=== PATIENT | female | born 1940 | race Caucasian/White ===

== ENCOUNTER 2016-07-07 15:21 | Inpatient (IN) | payer MEDICARE, OTHER ==
[~2016-07-07] VITALS: Ht 162.6 cm; Wt 103.4 kg
[~2016-07-07 15:21] MED LIST: ACET650T5 PO; CETI5TAB11 PO; HYDR-2164 PO; LOSA1TAB95 PO; MECL-38 PO; MELO-32 PO
--- OUTSIDE RECORDS SUMMARY | 2016-07-07 15:27 | XMS REPORT | Referral Summary ---
Author Author [facility] Organization [facility] Address Unknown Phone Unavailable Care Team Providers Care Fruit Grower Name Role Phone Calin Willard Primary Care Physician [phone] Encounter VC Date(s): 09/26/14 - 09/26/14 [facility] [address] [place] [address]- Discharge Diagnosis: Olecranon bursitis Discharge Disposition: 01-Home or Self Care Attending Physician: Lenny Willard MD Admitting Physician: Lenny Willard MD Vital Signs Most recent to 1 oldest [Reference Range]: Temperature Tympanic 36.0 degC [36.6-38.1 degC] *LOW* (09/26/14 2:46 PM) Peripheral Pulse 72 bpm Rate [60-100 bpm] (09/26/14 2:46 PM) Respiratory Rate 22 br/min [14-20 br/min] *HI* (09/26/14 2:46 PM) Blood Pressure 130/70 mmHg [90-140/60-90 mmHg] (09/26/14 2:46 PM) Problem List Condition Effective Dates Status Health Status Informant Allergies(Confirmed) Resolved Arthritis(Confirmed) Resolved Benign essential Active hypertension (disorder)(Confirmed ) Chicken Resolved pox(Confirmed) Generalized Active osteoarthritis (disorder)(Confirmed ) Ear Resolved infection(Confirmed) Gastroesophageal Active reflux disease (disorder)(Confirmed ) genitourinary(Confir Resolved med) GERD Resolved (gastroesophageal reflux disease)(Confirmed) Hypertension(Confirm Resolved ed) Kidney stone Active (disorder)(Confirmed ) Kidney Resolved stones(Confirmed) Obesity(Confirmed) Active patient Right sided Active sciatica(Confirmed) Sinus Resolved infection(Confirmed) Allergies, Adverse Reactions, Alerts Substance Reaction Severity Status Ceftin Active codeine gi upset Active HYDROcodone Active meperidine Active oxyCODONE HALLUCINATIONS Active sulfamethoxazole Active sulindac Active Medications fluticasone 50 mcg/inh nasal spray 1 sprays, Nasal, BID, 0 Refill(s) Start Date: 07/31/13 Status: Ordered losartan-hydrochlorothiazide 100 mg-12.5 mg oral tablet See Instructions, TAKE ONE TABLET BY MOUTH DAILY, # 30 tabs, 1 Refill(s), eRx: [facility] #[id number], TAKE ONE TABLET BY MOUTH DAILY Start Date: 02/13/15 Status: Ordered meclizine 12.5 mg oral tablet 12.5 mg 1 tabs, Oral, TID, as needed for dizziness, # 30 tabs, 0 Refill(s) Start Date: 10/24/14 Status: Ordered meloxicam 15 mg oral tablet See Instructions, TAKE ONE TABLET BY MOUTH EVERY DAY, # 60 tabs, eRx: [facility] #[id number], TAKE ONE TABLET BY MOUTH EVERY DAY Start Date: 02/01/15 Status: Ordered Tylenol Extra Strength mg, Oral, q6hr, 0 Refill(s) Start Date: 07/31/13 Status: Ordered Results No data available for this section Immunizations Vaccine Date Refusal Reason tetanus/diphth/pertuss (Tdap) adult/adol 09/20/12 pneumococcal 13-valent conjugate vaccine1 09/17/14 pneumococcal 23-polyvalent vaccine 07/24/08 zoster vaccine live 07/24/08 1Early/Late Reason: Nursing Judgment Procedures Procedure Date Related Diagnosis Body Site Mammogram 03/23/11 Colonoscope 10/17/06 DEXA - Dual energy X-ray photon 03/28/03 absorptiometry Cholecystectomy Cystoscopy Hysterectomy L TKA 11/10/2001 Lithotripsy R TKA 12/27/2001 Social History Social History Type Response Smoking Status Never smoker Assessment and Plan Extracted from: Title: Ambulatory Patient Education Author: Lenny Willard MD Date: Family Medicine Olecranon Bursitis Bursitis is swelling and soreness (inflammation) of a fluid-filled sac (bursa) that covers and protects a joint. Olecranon bursitis occurs over the elbow. CAUSES Bursitis can be caused by injury, overuse of the joint, arthritis, or infection. SYMPTOMS Tenderness, swelling, warmth, or redness over the elbow. Elbow pain with movement. This is greater with bending the elbow. Squeaking sound when the bursa is rubbed or moved. Increasing size of the bursa without pain or discomfort. Fever with increasing pain and swelling if the bursa becomes infected. HOME CARE INSTRUCTIONS Put ice on the affected area. Put ice in a plastic bag. Place a towel between your skin and the bag. Leave the ice on for 15-20 minutes each hour while awake. Do this for the first 2 days. When resting, elevate your elbow above the level of your heart. This helps reduce swelling. Continue to put the joint through a full range of motion 4 times per day. Rest the injured joint at other times. When the pain lessens, begin normal slow movements and usual activities. Only take [id number] or prescription medicines for pain, discomfort, or fever as directed by your caregiver. Reduce your intake of milk and related dairy products (cheese, yogurt). They may make your condition worse. SEEK IMMEDIATE MEDICAL CARE IF: Your pain increases even during treatment. You have a fever. You have heat and inflammation over the bursa and elbow. You have a red line that goes up your arm. You have pain with movement of your elbow. MAKE SURE YOU: Understand these instructions. Will watch your condition. Will get help right away if you are not doing well or get worse. Document Released: 03/03/2007 Document Revised: 04/25/2012 Document Reviewed: [facility] Patient Information 2015 [employer]. This information is not intended to replace advice given to you by your health care provider. Make sure you discuss any questions you have with your health care provider. No follow up information was provided. Extracted from: Title: Office Visit Note Author: Lenny Willard MD Date: 09/26/14 Assessment/Plan Olecranon bursitis She is already taking meloxicam and she should continue that. She is to protect her elbow either by wearing an elbow pad or is being careful where she places it down. No heavy lifting. If she has ongoing problems or further concerns she'll let me know. I told him he'll be 3-4 weeks before this resolves. It appears to be worsening she'll let us know. Ordered: Office Visit Level 3 Est 31241
--- OUTSIDE RECORDS SUMMARY | 2016-07-07 15:27 | XMS REPORT | Referral Summary ---
Author Author [facility] Organization [facility] Address Unknown Phone Unavailable Care Team Providers Care Rebeamer Name Role Phone Calin Willard Primary Care Physician [phone] Encounter Date(s): 09/20/15 - 09/20/15 [facility] [address] [place] [address] [place] Discharge Diagnosis: Right knee pain Discharge Disposition: 01-Home or Self Care Attending Physician: Lenny Willard MD Admitting Physician: Lenny Willard MD Vital Signs Most recent to 1 oldest [Reference Range]: Temperature Tympanic 36.4 degC [36.6-38.1 degC] *LOW* (09/20/15 4:00 PM) Peripheral Pulse 67 bpm Rate [60-100 bpm] (09/20/15 4:00 PM) Blood Pressure 138/74 mmHg [90-140/60-90 mmHg] (09/20/15 4:00 PM) SpO2 96 % (09/20/15 4:00 PM) Problem List Condition Effective Dates Status [...] TABLET BY MOUTH DAILY, # 30 tabs, 4 Refill(s), eRx: [facility] #[id number], TAKE ONE TABLET BY MOUTH DAILY Start Date: 04/22/15 Status: Ordered meclizine 12.5 mg oral tablet 12.5 mg 1 tabs, Oral, TID, as needed for dizziness, # 30 tabs, 0 Refill(s) Start Date: 10/24/14 Status: Ordered meloxicam 15 mg oral tablet See Instructions, TAKE ONE TABLET BY MOUTH EVERY DAY, # 60 tabs, 2 Refill(s), eRx: [facility] #[id number], TAKE ONE TABLET BY MOUTH EVERY DAY Start Date: 06/25/15 Status: Ordered Tylenol Extra Strength mg, Oral, [...] smoker Assessment and Plan Extracted from: Title: Office Visit Note Author: Lenny Willard MD Date: 09/20/15 Assessment/Plan 1.Right knee pain I think this is a contusion to the knee. I recommended decreased activity and continue Tylenol as needed. If symptoms persist or worsenorthopedic follow-up encouraged. Ordered: Office Visit Level 3 Est 95939 XR Knee Complete Right
--- OUTSIDE RECORDS SUMMARY | 2016-07-07 15:27 | XMS REPORT | Referral Summary ---
Author Author [facility] Organization [facility] Address Unknown Phone Unavailable Care Team Providers Care Vp Of Customer Experience Strategy Name Role Phone Calin Willard Primary Care Physician [phone] Encounter VC Date(s): 11/27/14 - 11/27/14 [facility] [address] [place] [address] [place] [address] [place] Discharge Diagnosis: Benign essential hypertension Discharge Disposition: 01-Home or Self Care Attending Physician: Dion Burroughs JR, MD Admitting Physician: Dion Burroughs JR, MD Referring Physician: Lenny Willard MD Vital Signs Most recent to 1 oldest [Reference Range]: Peripheral Pulse 68 bpm Rate [60-100 bpm] (11/27/14 10:09 AM) Blood Pressure 142/88 mmHg [90-140/60-90 mmHg] *HI* (11/27/14 10:09 AM) Problem List Condition Effective Dates Status Health [...] See Instructions, TAKE ONE TABLET BY MOUTH ONCE A DAY, # 30 tabs, 5 Refill(s), eRx: [facility] #[id number], TAKE ONE TABLET BY MOUTH ONCE A DAY Start Date: 07/04/14 Status: Ordered meclizine 12.5 mg oral tablet 12.5 mg 1 tabs, Oral, TID, as needed for dizziness, # 30 tabs, 0 Refill(s) Start Date: 10/24/14 Status: Ordered meloxicam 15 mg oral tablet See Instructions, TAKE ONE TABLET BY MOUTH EVERY DAY, # 60 tabs, eRx: [facility] #[id number], TAKE ONE TABLET BY MOUTH EVERY DAY Start Date: 11/30/14 Status: Ordered oxybutynin 15 mg/24 hr oral tablet, extended release 15 mg 1 tabs, Oral, Daily, # 42 tabs, 0 Refill(s), Pharmacy: [facility] # [id number], 1 tabs Oral Daily,x6 weeks Start Date: 11/27/14 Stop Date: 01/08/15 Status: Ordered Tylenol Extra Strength mg, Oral, [...] Extracted from: Title: Ambulatory Patient Education Author: Dion Burroughs JR, MD Date : 11/27/14 Follow Up With: Where: When: Lenny Willard [address] [place] [address] Drive; [place] [address] Business (1) Within 3 to 5 days Comments: Follow Up With: Where: When: Dion Burroughs [address] [place] [address] Drive; [place] [address] [employer] (1) In 6 weeks 01/08/2015 Comments: Extracted from: Title: Office Visit Note Author: Dion Burroughs JR, MD Date: 11/27/14 Assessment/Plan 1.Benign essential hypertension continue losartan with hydrochlorothiazide History of kidney stones KUB x-ray ordered today, I reviewed the KUB x-ray could not see any stone present on the left and right kidney. urgency and urgency incontinence. Instructed to reduce intake of caffeine highly acidic and highly spiced food, patient was started on Oxybutynin 15 mg once a day. I would like to see her again in 6 weeks. Ordered: Office Visit Level 4 Est [id number] Orders: oxybutynin, 15 mg 1 tabs, Oral, Daily, # 42 tabs, 0 Refill(s), Pharmacy: [facility] #[id number], 1 tabs Oral Daily,x6 weeks
--- OUTSIDE RECORDS SUMMARY | 2016-07-07 15:27 | XMS REPORT | Referral Summary ---
Author Author [facility] Organization [facility] Address Unknown Phone Unavailable Care Team Providers Care Club Manager Name Role Phone Calin Willard Primary Care Physician [phone] Encounter VC Date(s): 11/27/14 - 11/27/14 [facility] [address] [place] [address] [place] [address] [place] Discharge Diagnosis: Benign [...] DAY, # 30 tabs, 5 Refill(s), eRx: [facility] #[id number], TAKE ONE TABLET BY MOUTH ONCE A DAY Start Date: 07/04/14 Status: Ordered meclizine 12.5 mg oral tablet 12.5 mg 1 tabs, Oral, TID, as needed for dizziness, # 30 tabs, 0 Refill(s) Start Date: 10/24/14 Status: Ordered meloxicam 15 mg oral tablet See Instructions, TAKE ONE TABLET BY MOUTH EVERY DAY, # 60 tabs, eRx: [facility] #[id number], TAKE ONE TABLET BY MOUTH EVERY DAY Start Date: 11/30/14 Status: Ordered oxybutynin 15 mg/24 hr oral tablet, extended release 15 mg 1 tabs, Oral, Daily, # 42 tabs, 0 Refill(s), Pharmacy: [facility] # [id number], 1 tabs Oral Daily,x6 weeks Start Date: [...] Follow Up With: Where: When: Lenny Willard [address] [place] [address] Drive; [place] [address] Business (1) Within 3 to 5 days Comments: Follow Up With: Where: When: Dion Burroughs [address] [place] [address] Drive; [place] [address] [employer] (1) In 6 weeks 01/08/2015 Comments: Extracted [...] weeks. Ordered: Office Visit Level 4 Est [id number] Orders: oxybutynin, 15 mg 1 tabs, Oral, Daily, # 42 tabs, 0 Refill(s), Pharmacy: [facility] #[id number], 1 tabs Oral Daily,x6 weeks
--- OUTSIDE RECORDS SUMMARY | 2016-07-07 15:27 | XMS REPORT | Referral Summary ---
Author Organization Unknown Address Unknown Phone Unavailable Care Team Providers Care Vegetable Buncher Name Role Phone Calin Willard Primary Care Physician [phone] Encounter VC Date(s): 05/29/14 - 05/29/14 [facility] [address] [place] [address] Dr [address] [place] [id number] Discharge Diagnosis: Kidney stones Discharge Disposition: Home or Self Care Attending Physician: Dion Burroughs JR, MD Admitting Physician: Dion Burroughs JR, MD Referring Physician: Dion Burroughs JR, MD Vital Signs Most recent to 1 oldest [Reference Range]: Peripheral Pulse 69 bpm Rate [60-100 bpm] (05/29/14 10:18 AM) Blood Pressure 118/82 mmHg [90-140/60-90 mmHg] (05/29/14 10:18 AM) Most recent to 1 oldest [Reference Range]: SpO2 94 % (05/29/14 10:18 AM) Problem List Condition Effective Dates Status [...] Ordered losartan-hydrochlorothiazide 100 mg-12.5 mg oral tablet 1 tabs, Oral, Daily, 0 Refill(s) Start Date: 07/31/13 Status: Ordered meloxicam 15 mg oral tablet See Instructions, TAKE ONE TABLET BY MOUTH EVERY DAY, # 60 tabs, eRx: [facility] #[id number], TAKE ONE TABLET BY MOUTH EVERY DAY Special Instructions: TAKE ONE TABLET BY MOUTH EVERY DAY Start Date: 05/22/14 Status: Ordered Tylenol Extra Strength mg, Oral, q6hr, 0 Refill(s) Start Date: 07/31/13 Status: Ordered Results No data available for this section Immunizations Vaccine Date Refusal Reason tetanus/diphth/pertuss (Tdap) adult/adol 09/20/12 pneumococcal 23-polyvalent vaccine 07/24/08 zoster vaccine live 07/24/08 Procedures Procedure Date Related Diagnosis Body Site Mammogram 03/23/11 Colonoscope 10/17/06 DEXA - Dual energy X-ray photon 03/28/03 absorptiometry Cholecystectomy Cystoscopy Hysterectomy L TKA 11/10/2001 Lithotripsy R TKA 12/27/2001 Social History Social History Type Response Smoking Status Never smoker Assessment and Plan Extracted from: Title: Ambulatory Patient Education Author: Dion Burroughs JR, MD Date : 05/29/14 Follow Up With: Where: When: Lenny Willard [address] [place] [address] Drive; [place] [address] Business (1) Within 3 to 5 days Comments: Follow Up With: Where: When: Dion Burroughs [address] [place] [address] Drive; [place] [address] Business (1) In 6 months 11/28/2014 Comments:
--- OUTSIDE RECORDS SUMMARY | 2016-07-07 15:27 | XMS REPORT | Continuity of Care Document ---
Author Author [facility] Organization [facility] Address Unknown Phone Unavailable Allergies Medications Problems Procedures Results Encounters ACCT No. Visit Date/Time Discharge Status Pt. Type Provider Facility Loc./Unit Complaint [id number] 04/06/2013 09:52:00 04/06/2013 23 :59:59 [facility] Outpatient [id number] 01/23/2013 16:02:00 01/23/2013 23 :59:59 CLS Outpatient
--- OUTSIDE RECORDS SUMMARY | 2016-07-07 15:27 | XMS REPORT | Referral Summary ---
Author Author [facility] Organization [facility] Address Unknown Phone Unavailable Care Team Providers Care Business Continuity Global Director Name Role Phone Calin Willard Primary Care Physician [phone] Encounter VC Date(s): 11/15/14 - 11/15/14 [facility] [address] [place] [id number] Discharge Diagnosis: Olecranon bursitis of left elbow Discharge Diagnosis: Tinnitus Discharge Disposition: 01-Home or Self Care Attending Physician: Lenny Willard MD Admitting Physician: Lenny Willard MD Vital Signs Most recent to 1 oldest [Reference Range]: Temperature Tympanic 35.7 degC [36.6-38.1 degC] *LOW* (11/15/14 2:40 PM) Peripheral Pulse 80 bpm Rate [60-100 bpm] (11/15/14 2:40 PM) Respiratory Rate 20 br/min [14-20 br/min] (11/15/14 2:40 PM) Blood Pressure 138/82 mmHg [90-140/60-90 mmHg] (11/15/14 2:40 PM) Problem List Condition Effective Dates Status [...] DAILY, # 30 tabs, 4 Refill(s), eRx: [facility] #[id number], TAKE ONE TABLET BY MOUTH DAILY Start Date: 04/22/15 Status: Ordered meclizine 12.5 mg oral tablet 12.5 mg 1 tabs, Oral, TID, as needed for dizziness, # 30 tabs, 0 Refill(s) Start Date: 10/24/14 Status: Ordered meloxicam 15 mg oral tablet See Instructions, TAKE ONE TABLET BY MOUTH EVERY DAY, # 60 tabs, eRx: [facility] #[id number], TAKE ONE TABLET BY MOUTH EVERY DAY Start Date: 04/08/15 Status: Ordered Tylenol Extra Strength mg, Oral, [...] Visit Note Author: Lenny Willard MD Date: 11/15/14 Assessment/Plan Olecranon bursitis of left elbow Reassurance at this point no further specific treatment. I encouraged her to try to stay off of her elbow and to use it as little as possible. Over time this should improve. I offered orthopedic referral she'll hold off for now. Ordered: Office Visit Level 3 Est 03996 Tinnitus Her exam is normal. I suggested with recent ear infection that we give this a few more weeks. If the symptoms persist then further evaluation possible ENT consult will be recommended. Ordered: Office Visit Level 3 Est 03097
--- OUTSIDE RECORDS SUMMARY | 2016-07-07 15:27 | XMS REPORT | Referral Summary ---
Author Author [facility] Organization [facility] Address Unknown Phone Unavailable Care Team Providers Care Sole Rougher Name Role Phone Calin Willard Primary Care Physician [phone] Encounter VC Date(s): 10/24/14 - 10/24/14 [facility] [address] [place] [address]- Discharge Diagnosis: Vertigo Discharge Diagnosis: Otitis media Discharge Disposition: 01-Home or Self Care Attending Physician: Marychuy Carroll APRN Admitting Physician: Marychuy Carroll APRN Vital Signs Most recent to 1 oldest [Reference Range]: Temperature Tympanic 35.8 degC [36.6-38.1 degC] *LOW* (10/24/14 2:17 PM) Peripheral Pulse 64 bpm Rate [60-100 bpm] (10/24/14 2:17 PM) Blood Pressure 118/76 mmHg [90-140/60-90 mmHg] (10/24/14 2:17 PM) Problem List Condition Effective Dates Status [...] DAILY, # 30 tabs, 4 Refill(s), eRx: [facility] #[id number], TAKE ONE TABLET BY MOUTH DAILY Start Date: 04/22/15 Status: Ordered meclizine 12.5 mg oral tablet 12.5 mg 1 tabs, Oral, TID, as needed for dizziness, # 30 tabs, 0 Refill(s) Start Date: 10/24/14 Status: Ordered meloxicam 15 mg oral tablet See Instructions, TAKE ONE TABLET BY MOUTH EVERY DAY, # 60 tabs, eRx: [facility] #[id number], TAKE ONE TABLET BY MOUTH EVERY DAY [...] and Plan Extracted from: Title: Office Visit Note-dizziness Author: Marychuy Carroll APRN Date: Assessment/Plan 1.Otitis media Amoxicillin twice a day x 10 days. Auragan ear drops as needed. office visit if not improving. Ordered: Office Visit Level 3 Est 47177 2.Vertigo Increase fluid intake. Small meals. Meclizine 12.5 mg 3 times a day as needed. May want to take routinely for the next few days.Let us know if symptoms fail to improve. Flu shot this fall. Ordered: Office Visit Level 3 Est [id number] Orders: amoxicillin, 875 mg 1 tabs, Oral, BID, X 10 days, # 20 tabs, 0 Refill( s), Pharmacy: [facility] #[id number], 1 tabs Oral BID,x10 days antipyrine-benzocaine otic, 2 drops, Ear-Left, q4hr, as needed for pain, X 7 days, # 10 mL, 0 Refill(s), Pharmacy: [facility] #[id number]
--- OUTSIDE RECORDS SUMMARY | 2016-07-07 15:27 | XMS REPORT | Referral Summary ---
Author Author [facility] Organization [facility] Address Unknown Phone Unavailable Care Team Providers Care Truck Shop Mechanic Name Role Phone Calin Willard Primary Care Physician [phone] Encounter VC Date(s): 01/06/16 - 01/06/16 [facility] [address] [place], [place] [address] Discharge Disposition: 01-Home or Self Care Attending Physician: Nato De La Cruz MD Admitting Physician: Nato De La Cruz MD Vital Signs No data available for this section Problem List Condition Effective Dates Status Health [...] Alerts Substance Reaction Severity Status Ceftin Active Clinoril Active codeine gi upset Active HYDROcodone Active meperidine Active oxyCODONE HALLUCINATIONS Active sulfamethoxazole Active sulindac Active Medications fluticasone 50 mcg/inh nasal spray 1 sprays, Nasal, BID, 0 Refill(s) Start Date: 07/31/13 Status: Ordered losartan-hydrochlorothiazide 100 mg-12.5 mg oral tablet See Instructions, TAKE ONE TABLET BY MOUTH DAILY, # 30 tabs, 4 Refill(s), eRx: [facility] #[id number], TAKE ONE TABLET BY MOUTH DAILY Start Date: 04/22/15 Status: Ordered meclizine 12.5 mg oral tablet 12.5 mg 1 tabs, Oral, TID, as needed for dizziness, # 30 tabs, 0 Refill(s) Start Date: 10/24/14 Status: Ordered meloxicam 15 mg oral tablet See Instructions, TAKE ONE TABLET BY MOUTH EVERY DAY, # 60 tabs, 6 Refill(s), Pharmacy: [facility] #[id number], TAKE ONE TABLET BY MOUTH EVERY DAY Start Date: 12/05/15 Status: Ordered tolterodine 4 mg oral capsule, extended release 4 mg 1 caps, Oral, Daily, # 90 caps, 0 Refill(s), Pharmacy: [facility] # [id number], 1 caps Oral Daily,x90 days Start Date: 12/30/15 Stop Date: 03/29/16 Status: Ordered Tylenol Extra Strength mg, Oral, q6hr, 0 Refill(s) Start Date: 07/31/13 Status: Ordered Results No data available for this section Immunizations Vaccine Date Refusal Reason tetanus/diphth/pertuss (Tdap) adult/adol 09/20/12 pneumococcal 13-valent conjugate vaccine1 09/17/14 pneumococcal 23-polyvalent vaccine 07/24/08 zoster vaccine live 07/24/08 1Early/Late Reason: Nursing Judgment Procedures Procedure Date Related Diagnosis Body Site Arthrocentesis, aspiration and/or injection, 01/06/16 major joint or bursa (eg, shoulder, hip, knee, subacromial bursa); without ultrasound guidance Mammogram 03/23/11 Colonoscope 10/17/06 DEXA - Dual energy X-ray photon 03/28/03 absorptiometry Cholecystectomy Cystoscopy Hysterectomy L TKA 11/10/2001 Lithotripsy R TKA 12/27/2001 Social History Social History Type Response Smoking Status Never smoker Assessment and Plan Extracted from: Title: Ambulatory Patient Education Author: Nato De La Cruz MD Date: 01/06/16 Procedures Joint Injection, Care After Refer to this sheet in the next few days. These instructions provide you with information on caring for yourself after you have had a joint injection. Your caregiver also may give you more specific instructions. Your treatment has been planned according to current medical practices, but problems sometimes occur. Call your caregiver if you have any problems or questions after your procedure. After any type of joint injection, it is not uncommon to experience: Soreness, swelling, or bruising around the injection site. Mild numbness, tingling, or weakness around the injection site caused by the numbing medicine used before or with the injection. It also is possible to experience the following effects associated with the specific agent after injection: Iodine-based contrast agents: Allergic reaction (itching, hives, widespread redness, and swelling beyond the injection site). Corticosteroids (These effects are rare.): Allergic reaction. Increased blood sugar levels (If you have diabetes and you notice that your blood sugar levels have increased, notify your caregiver). Increased blood pressure levels. Mood swings. Hyaluronic acid in the use of viscosupplementation. Temporary heat or redness. Temporary rash and itching. Increased fluid accumulation in the injected joint. These effects all should resolve within a day after your procedure. HOME CARE INSTRUCTIONS Limit yourself to light activity the day of your procedure. Avoid lifting heavy objects, bending, stooping, or twisting. Take prescription or [id number]-urqacme pain medication as directed by your caregiver. You may apply ice to your injection site to reduce pain and swelling the day of your procedure. Ice may be applied 03-04 times: Put ice in a plastic bag. Place a towel between your skin and the bag. Leave the ice on for no longer than 15-20 minutes each time. SEEK IMMEDIATE MEDICAL CARE IF: Pain and swelling get worse rather than better or extend beyond the injection site. Numbness does not go away. Blood or fluid continues to leak from the injection site. You have chest pain. You have swelling of your face or tongue. You have trouble breathing or you become dizzy. You develop a fever, chills, or severe tenderness at the injection site that last longer than 1 day. MAKE SURE YOU: Understand these instructions. Watch your condition. Get help right away if you are not doing well or if you get worse. This information is not intended to replace advice given to you by your health care provider. Make sure you discuss any questions you have with your health care provider. Document Released: 10/15/2011 Document Revised: 02/22/2015 Document Reviewed: [employer] Patient Education 2016 [employer] No follow up information was provided.
--- OUTSIDE RECORDS SUMMARY | 2016-07-07 15:27 | XMS REPORT | Referral Summary ---
Author Author [facility] Organization [facility] Address Unknown Phone Unavailable Care Team Providers Care Seed Technician Name Role Phone Calin Willard Primary Care Physician [phone] Encounter VC Date(s): 03/09/16 - 03/09/16 [facility] [address] [place] [address]- Discharge Diagnosis: Generalized osteoarthritis (disorder) Discharge Diagnosis: Obesity Discharge Diagnosis: Benign essential hypertension Discharge Diagnosis: Gastroesophageal reflux disease Discharge Disposition: 01-Home or Self Care Attending Physician: Lenny Willard MD Admitting Physician: Lenny Willard MD Vital Signs Most recent to 1 oldest [Reference Range]: Temperature Tympanic 36.2 degC [36.6-38.1 degC] *LOW* (03/09/16 10:57 AM) Peripheral Pulse 76 bpm Rate [60-100 bpm] (03/09/16 10:57 AM) Respiratory Rate 18 br/min [14-20 br/min] (03/09/16 10:57 AM) Blood Pressure 164/96 mmHg [90-140/60-90 mmHg] *HI* (03/09/16 10:57 AM) Problem List Condition Effective Dates Status [...] TABLET BY MOUTH DAILY, # 30 tabs, 3 Refill(s), eRx: [facility] #[id number] Start Date: 03/03/16 Status: Ordered meclizine 12.5 mg oral tablet 12.5 mg 1 tabs, Oral, TID, as needed for dizziness, # 30 tabs, 0 Refill(s) Start Date: 10/24/14 Status: Ordered meloxicam 15 mg oral tablet See Instructions, TAKE ONE TABLET BY MOUTH EVERY DAY, # 60 tabs, 6 Refill(s), Pharmacy: [facility] #[id number], TAKE ONE TABLET BY MOUTH EVERY DAY Start Date: 12/05/15 Status: Ordered tolterodine 4 mg oral capsule, extended release 4 mg 1 caps, Oral, Daily, # 90 caps, 3 Refill(s), Pharmacy: [facility] # [id number], 1 caps Oral Daily,x90 days Start Date: 03/09/16 Stop Date: 03/04/17 Status: Ordered Tylenol Extra Strength mg, Oral, q6hr, 0 Refill(s) Start Date: 07/31/13 Status: Ordered Results No data available for this section Immunizations Given and Recorded Vaccine Date Status Refusal Reason tetanus/diphth/pertuss (Tdap) adult/adol 09/20/12 Recorded pneumococcal 13-valent conjugate vaccine1 09/17/14 Given pneumococcal 23-polyvalent vaccine 07/24/08 Recorded zoster vaccine live 07/24/08 Given 1Early/Late Reason: Nursing Judgment Procedures Procedure Date Related Diagnosis Body Site Mammogram 03/23/11 Colonoscope 10/17/06 DEXA - Dual energy X-ray photon 03/28/03 absorptiometry Cholecystectomy Cystoscopy Hysterectomy L TKA 11/10/2001 Lithotripsy R TKA 12/27/2001 Social History Social History Type Response Smoking Status Never smoker Assessment and Plan Extracted from: Title: Office Visit Note Author: Lenny Willard MD Date: 03/09/16 Assessment/Plan 1.Benign essential hypertension Blood pressures a little high here but his been running normal at home. She'll continue to check at least twice weekly and keep me posted if they start running higher there. I've recommended a three-month follow-upwith fasting lab prior to that appointment. 2.Gastroesophageal reflux disease Chronic relatively stable no change in current treatment. 3.Generalized osteoarthritis (disorder) Chronic relatively stable. As mentioned above she is considering surgery on her left shoulder. For the time being she is elected to hold off on any further treatment. 4.Obesity I did encourage weight loss.
--- OUTSIDE RECORDS SUMMARY | 2016-07-07 15:27 | XMS REPORT | Continuity of Care Document ---
Author Author Lenny Willard MD [facility] Ambulatory Address [address] [place] [address] Phone Care Team Providers Care Brain Surgeon Name Role Phone Lenny Willard PP Unavailable Payers Payer name Insurance type Covered libertarian ID Authorization(s) Unknown Problems Condition Effective Dates (start - stop) Clinical Status Hypertension, Benign - *Chronic Osteoarthrosis, generalized, involving unspecified site - * Chronic GERD - *Chronic Degeneration of lumbar or lumbosacral intervertebral disc - * Chronic Hypertension, Benign - Chronic Osteoarthrosis, generalized, involving unspecified site - Chronic GERD - Chronic Degeneration of lumbar or lumbosacral intervertebral disc - Chronic Elevated blood pressure reading without diagnosis of hypertension - *Acute HEMATURIA NOS - *Acute NEED FOR PROPHYLACTIC VACCINATION WITH COMBINED [id number] ( DTP) (DTAP) VACCINE - Hypertension, Benign - *Chronic GERD - *Chronic Osteoarthrosis, generalized, involving unspecified site - * Chronic Calculus of kidney - *Chronic Hypertension, Benign - Chronic GERD - Chronic Osteoarthrosis, generalized, involving unspecified site - Chronic Calculus of kidney - Chronic Back pain - *Chronic Actinic keratosis - *Chronic Upper Respiratory Infection, Acute - *Acute Calculus of kidney - *Acute Obesity - *Chronic Hypertension, Benign - *Chronic GERD - *Chronic Osteoarthrosis, generalized, involving unspecified site - * Chronic Calculus of kidney - *Chronic Urinary Tract Infection - *Acute Abdominal pain, unspecified site - *Acute Hypertension, Benign - *Controlled Calculus of kidney - *Acute Calculus of ureter - *Acute Calculus of ureter - *Acute Calculus of ureter - *Acute Hypertension, Benign - *Chronic GERD - *Chronic Osteoarthrosis, generalized, involving unspecified site - * Chronic Degenerative disc disease, lumbar - *Chronic Calculus of kidney - *Acute Other postsurgical status - *Acute Family History Family Member Diagnosis Age At Onset Status Unknown Social History Social History Element Description Quantity Unknown Allergies, Adverse Reactions, Alerts Substance Reaction Severity Status ACETAMINOPHEN HALLUCINATIONS Unknown OXYCODONE HCL HALLUCINATIONS Unknown TRAMADOL UPSET STOMACH/HALLUCINATIONS Unknown CEFUROXIME AXETIL Unknown PRESERVATIVE FREE Unknown SULINDAC Unknown SULFA (SULFONAMIDE ANTIBIOTICS) Unknown HYDROCODONE BITARTRATE Unknown CODEINE SULFATE gi upset Unknown MEPERIDINE HCL Unknown ACETAMINOPHEN Unknown Medications Medication Instructions Dosage Effective Dates (start - stop) Status AMOXICILLIN (unknown strength) take 1 capsule by oral route every 8 hours for 10 days - No Longer Active Tylenol Extra Strength Rapid Release 500 mg tablet take 2 tablet (1000MG) by oral route every 6 hours as needed 1000 MG - Active fluticasone 50 mcg/actuation nasal spray,suspension one spray each nostril bid - Active losartan 50 mg-hydrochlorothiazide 12.5 mg tablet take 1/2 tablet (25/6.25) by oral route every day - Active meloxicam 15 mg tablet Take 1 tablet by mouth every day. - Active Immunizations Vaccine Date Status Comments Tdap (Boostrix r) completed pneumo (2 yrs or older) (PPV23) completed - Completed reason: previously given Zoster completed - Completed reason: previously given Results Test Name Date and Time Measure Units Reference Range Abnormal Flag Comments Unknown Vital Signs Date / Time: Height Weight Pulse Rate Blood Pressure Temperature /09:58:00 65.00 in 188.00 lbs 80 /min 130/70 mm[Hg] 99.3 F Procedures Procedure Date Unknown Encounters Encounter Location Date Patient Visit [facility] Patient Visit Patient Visit [facility] Patient Visit [facility] Patient Visit [facility] Patient Visit [facility] Patient Visit [facility] Patient Visit [facility] Patient Visit [facility] Patient Visit [facility] Patient [facility] Visit [facility] Patient Visit [facility] Patient Visit [facility] Patient Visit Con[facility] Advance Directives Directive Effective Date Unknown
--- OUTSIDE RECORDS SUMMARY | 2016-07-07 15:27 | XMS REPORT | Referral Summary ---
Author Author [facility] Organization [facility] Address Unknown Phone Unavailable Care Team Providers Care Warehouse Order Selector Name Role Phone Calin Willard Primary Care Physician [phone] Encounter VC Date(s): 11/15/14 - 11/15/14 [facility] [address] [place] [address] Discharge Diagnosis: Olecranon bursitis of left [...] DAY, # 30 tabs, 5 Refill(s), eRx: [facility] #[id number], TAKE ONE TABLET BY MOUTH ONCE A DAY Start Date: 07/04/14 Status: Ordered meclizine 12.5 mg oral tablet 12.5 mg 1 tabs, Oral, TID, as needed for dizziness, # 30 tabs, 0 Refill(s) Start Date: 10/24/14 Status: Ordered meloxicam 15 mg oral tablet See Instructions, TAKE ONE TABLET BY MOUTH EVERY DAY, # 60 tabs, eRx: [facility] #[id number], TAKE ONE TABLET BY MOUTH EVERY DAY Start Date: 09/06/14 Status: Ordered Tylenol Extra Strength mg, Oral, [...] now. Ordered: Office Visit Level 3 Est 88003 Tinnitus Her exam is normal. I suggested with recent ear infection that we give this a few more weeks. If the symptoms persist then further evaluation possible ENT consult will be recommended. Ordered: Office Visit Level 3 Est 88622
--- OUTSIDE RECORDS SUMMARY | 2016-07-07 15:27 | XMS REPORT | Referral Summary ---
Author Author [facility] Organization [facility] Address Unknown Phone Unavailable Care Team Providers Care Box Sealing Machine Operator Name Role Phone Calin Willard Primary Care Physician [phone] Encounter VC Date(s): 03/18/15 - 03/18/15 [facility] [address] [place] [address] [place] Discharge Diagnosis: Elevated glucose Discharge Diagnosis: Generalized osteoarthritis (disorder) Discharge Diagnosis: Benign essential hypertension Discharge Diagnosis: Gastroesophageal reflux disease Discharge Disposition: 01-Home or Self Care Attending Physician: Lenny Willard MD Admitting Physician: Lenny Willard MD Vital Signs Most recent to 1 oldest [Reference Range]: Temperature Tympanic 36.3 degC [36.6-38.1 degC] *LOW* (03/18/15 9:50 AM) Peripheral Pulse 84 bpm Rate [60-100 bpm] (03/18/15 9:50 AM) Respiratory Rate 18 br/min [14-20 br/min] (03/18/15 9:50 AM) Blood Pressure 116/68 mmHg [90-140/60-90 mmHg] (03/18/15 9:50 AM) Problem List Condition Effective Dates Status [...] DAILY, # 30 tabs, 1 Refill(s), eRx: [facility] #[id number], TAKE ONE TABLET BY MOUTH DAILY Start Date: 02/13/15 Status: Ordered meclizine 12.5 mg oral tablet 12.5 mg 1 tabs, Oral, TID, as needed for dizziness, # 30 tabs, 0 Refill(s) Start Date: 10/24/14 Status: Ordered meloxicam 15 mg oral tablet See Instructions, TAKE ONE TABLET BY MOUTH EVERY DAY, # 60 tabs, eRx: [facility] #[id number], TAKE ONE TABLET BY MOUTH EVERY DAY [...] Visit Note Author: Lenny Willard MD Date: 03/18/15 Assessment/Plan Benign essential hypertension Blood pressures well-controlled no change in current treatment is recommended. Fasting laboratory studies are ordered for later this week. Follow-up in 6 months. Ordered: Comprehensive Metabolic Panel Lipid Panel Office Visit Level 4 Est 25586 Elevated glucose She has had a mildly elevated glucose in the past we'll check an A1c with the lab. Encourageddietary control. Ordered: Hemoglobin A1c Office Visit Level 4 Est 95672 Gastroesophageal reflux disease Chronic stable no change in current treatment is recommended. Ordered: Office Visit Level 4 Est 38384 Generalized osteoarthritis (disorder) Chronic stable no change in current treatment is recommended. Ordered: Office Visit Level 4 Est 61633
--- OUTSIDE RECORDS SUMMARY | 2016-07-07 15:28 | XMS REPORT | Referral Summary ---
Author Author [facility] Organization [facility] Address Unknown Phone Unavailable Care Team Providers Care Roof Service Technician Name Role Phone Calin Willard Primary Care Physician [phone] Encounter VC Date(s): 12/05/15 - 12/05/15 [facility] [address] [place] [address] [place] Discharge Diagnosis: Benign essential hypertension Discharge Diagnosis: Biceps tendonitis on left Discharge Diagnosis: Gastroesophageal reflux disease Discharge Diagnosis: Generalized osteoarthritis (disorder) Discharge Disposition: 01-Home or Self Care Attending Physician: Lenny Willard MD Admitting Physician: Lenny Willard MD Vital Signs Most recent to 1 oldest [Reference Range]: Temperature Tympanic 36.3 degC [36.6-38.1 degC] *LOW* (12/05/15 9:37 AM) Peripheral Pulse 76 bpm Rate [60-100 bpm] (12/05/15 9:37 AM) Respiratory Rate 16 br/min [14-20 br/min] (12/05/15 9:37 AM) Blood Pressure 142/90 mmHg [90-140/60-90 mmHg] *HI* (12/05/15 9:37 AM) SpO2 98 % (12/05/15 9:37 AM) Problem List Condition Effective Dates Status [...] DAILY, # 30 tabs, 4 Refill(s), eRx: [facility] #[id number], TAKE ONE TABLET BY MOUTH DAILY Start Date: 04/22/15 Status: Ordered meclizine 12.5 mg oral tablet 12.5 mg 1 tabs, Oral, TID, as needed for dizziness, # 30 tabs, 0 Refill(s) Start Date: 10/24/14 Status: Ordered meloxicam 15 mg oral tablet See Instructions, TAKE ONE TABLET BY MOUTH EVERY DAY, # 60 tabs, 6 Refill(s), Pharmacy: [facility] #[id number], TAKE ONE TABLET BY MOUTH EVERY DAY Start Date: 12/05/15 Status: Ordered Tylenol Extra Strength mg, Oral, q6hr, 0 Refill(s) Start Date: 07/31/13 Status: Ordered Results Chemistry Most recent to 1 oldest [Reference Range]: Sodium Lvl [135-144 143 mEq/L mEq/L] (12/05/15 10:15 AM) Potassium Lvl 4.0 mEq/L [3.5-5.2 mEq/L] (12/05/15 10:15 AM) Chloride [99-111 108 mEq/L mEq/L] (12/05/15 10:15 AM) CO2 [22-31 mEq/L] 30 mEq/L (12/05/15 10:15 AM) AGAP [3-20] 5 (12/05/15 10:15 AM) BUN [10-20 mg/dL] 18 mg/dL (12/05/15 10:15 AM) Glucose Lvl [70-99 97 mg/dL mg/dL] (12/05/15 10:15 AM) Creatinine Lvl 1.10 mg/dL [0.57-1.11 mg/dL] (12/05/15 10:15 AM) eGFR [>60 mL/min] 48 mL/min 1 *ABN* (12/05/15 10:15 AM) Calcium Lvl 9.6 mg/dL [8.9-10.5 mg/dL] (12/05/15 10:15 AM) Albumin Lvl [3.4-4.8 4.0 gm/dL gm/dL] (12/05/15 10:15 AM) Total Protein 6.7 gm/dL [6.0-7.6 gm/dL] (12/05/15 10:15 AM) Globulin [1.8-4.0 2.7 gm/dL gm/dL] (12/05/15 10:15 AM) ALT [0-55 U/L] 12 U/L (12/05/15 10:15 AM) AST [5-34 U/L] 15 U/L (12/05/15 10:15 AM) Alk Phos [40-150 112 U/L U/L] (12/05/15 10:15 AM) Bili Total [0.2-1.2 0.5 mg/dL mg/dL] (12/05/15 10:15 AM) 1Result Comment: Multiply eGFR results by 1.21 for race. Immunizations Vaccine Date Refusal Reason tetanus/diphth/pertuss (Tdap) [...] Visit Note Author: Lenny Willard MD Date: 12/05/15 Assessment/Plan 1.Benign essential hypertension Blood pressure appears to be adequately controlled. Medications and treatments reviewed no changes are recommended. I've recommended a CMP today. Follow-up in 3 months call with questions problems or concerns. Ordered: Comprehensive Metabolic Panel Office Visit Level 4 Est 41273 2.Gastroesophageal reflux disease Chronic stable no change in current treatment. Ordered: Office Visit Level 4 Est 06686 3.Generalized osteoarthritis (disorder) Chronic stable no change in current treatment. I did refillmeloxicam for her today. Ordered: Comprehensive Metabolic Panel Office Visit Level 4 Est 55437 4.Biceps tendonitis on left Reassurance at this point. Avoid heavy use or lifting. I think this will calm down over time. Doesn't feel like she is more in the tendon at this point. If she is having further problems or not improving she'll let us know. Ordered: Office Visit Level 4 Est 28576
--- OUTSIDE RECORDS SUMMARY | 2016-07-07 15:28 | XMS REPORT | Referral Summary ---
Author Author [facility] Organization [facility] Address Unknown Phone Unavailable Care Team Providers Care Public Works Supervisor Name Role Phone Calin Willard Primary Care Physician [phone] Encounter Date(s): 09/17/14 - 09/17/14 [facility] [place] [address] [place] [address] [place] Discharge Diagnosis: Degenerative joint disease involving multiple joints Discharge Diagnosis: Benign essential hypertension Discharge Diagnosis: Degenerative disc disease Discharge Diagnosis: Gastroesophageal reflux disease Discharge Disposition: 01-Home or Self Care Attending Physician: Lenny Willard MD Admitting Physician: Lenny Willard MD Referring Physician: Lenny Willard MD Vital Signs Most recent to 1 oldest [Reference Range]: Temperature Tympanic 36.9 degC [36.6-38.1 degC] (09/17/14 9:38 AM) Peripheral Pulse 72 bpm Rate [60-100 bpm] (09/17/14 9:38 AM) Respiratory Rate 16 br/min [14-20 br/min] (09/17/14 9:38 AM) Blood Pressure 132/72 mmHg [90-140/60-90 mmHg] (09/17/14 9:38 AM) Problem List Condition Effective Dates Status [...] DAILY, # 30 tabs, 1 Refill(s), eRx: [facility] #[id number], TAKE ONE TABLET BY MOUTH DAILY Start Date: 02/13/15 Status: Ordered meclizine 12.5 mg oral tablet 12.5 mg 1 tabs, Oral, TID, as needed for dizziness, # 30 tabs, 0 Refill(s) Start Date: 10/24/14 Status: Ordered meloxicam 15 mg oral tablet See Instructions, TAKE ONE TABLET BY MOUTH EVERY DAY, # 60 tabs, eRx: [facility] #[id number], TAKE ONE TABLET BY MOUTH EVERY DAY [...] Visit Note Author: Lenny Willard MD Date: 09/17/14 Assessment/Plan Benign essential hypertension The pressure appears to be adequately controlled. No change in current treatment is recommended. Follow-up in 6 months. Ordered: pneumococcal 13-valent conjugate vaccine, 0.5 mL, IntraMuscular, Once, First Dose: 09/17/14 11:00:00 CDT, Stop Date: 09/17/14 11:00:00 CDT, Form: Injection Office Visit Level 4 Est 73328 Degenerative disc disease Chronic stable no change in current treatment recommended. Ordered: Office Visit Level 4 Est 22266 Degenerative joint disease involving multiple joints Overall her arthritis is relatively stable she can continue to be active. Continue treatment without change. Ordered: Office Visit Level 4 Est 86519 Gastroesophageal reflux disease Chronic stable no change in current treatment. Ordered: Office Visit Level 4 Est 81382
--- OUTSIDE RECORDS SUMMARY | 2016-07-07 15:28 | XMS REPORT | Referral Summary ---
Author Author [facility] Organization [facility] Address Unknown Phone Unavailable Care Team Providers Care Scrap Handler Name Role Phone Calin Willard Primary Care Physician [phone] Encounter VC Date(s): 03/09/16 - 03/09/16 [facility] [address] [place] [address] [place] Perla [address]- Discharge Diagnosis: Overactive bladder Discharge Disposition: 01-Home or Self Care Attending Physician: Moe Hernández MD Vital Signs Most recent to 1 oldest [Reference Range]: Blood Pressure 138/98 mmHg [90-140/60-90 mmHg] (03/09/16 2:00 PM) Problem List Condition Effective Dates Status [...] DAILY, # 30 tabs, 3 Refill(s), eRx: [facility] #[id number] Start Date: 03/03/16 Status: Ordered meclizine 12.5 mg oral tablet 12.5 mg 1 tabs, Oral, TID, as needed for dizziness, # 30 tabs, 0 Refill(s) Start Date: 10/24/14 Status: Ordered meloxicam 15 mg oral tablet See Instructions, TAKE ONE TABLET BY MOUTH EVERY DAY, # 60 tabs, 6 Refill(s), Pharmacy: [facility] #[id number], TAKE ONE TABLET BY MOUTH EVERY DAY Start Date: 12/05/15 Status: Ordered tolterodine 4 mg oral capsule, extended release 4 mg 1 caps, Oral, Daily, # 90 caps, 3 Refill(s), Pharmacy: [facility] # [id number], 1 caps Oral Daily,x90 days Start Date: [...] Extracted from: Title: Office Visit Note Author: Moe Hernández MD Date: 03/09/16 Assessment/Plan Overactive bladder Continue Detrol Follow-up in 6 months or sooner if necessary.
--- OUTSIDE RECORDS SUMMARY | 2016-07-07 15:28 | XMS REPORT | Referral Summary ---
Author Author [facility] Organization [facility] Address Unknown Phone Unavailable Care Team Providers Care Personnel Records Clerk Name Role Phone Calin Willard Primary Care Physician [phone] Encounter VC Date(s): 01/21/15 - 01/21/15 [facility] [address] [place] [address] [place] [address]- [place] Discharge Diagnosis: Essential hypertension Discharge Diagnosis: Urinary incontinence in female Discharge Diagnosis: Urinary incontinence in female Discharge Diagnosis: GERD without esophagitis Discharge Disposition: 01-Home or Self Care Attending Physician: Dion Burroughs JR, MD Admitting Physician: Dion Burroughs JR, MD Referring Physician: Lenny Willard MD Vital Signs Most recent to 1 oldest [Reference Range]: Peripheral Pulse 99 bpm Rate [60-100 bpm] (01/21/15 3:13 PM) Blood Pressure 118/76 mmHg [90-140/60-90 mmHg] (01/21/15 3:13 PM) Problem List Condition Effective Dates Status [...] DAY, # 30 tabs, 5 Refill(s), eRx: [facility] #[id number], TAKE ONE TABLET BY MOUTH ONCE A DAY Start Date: 07/04/14 Status: Ordered meclizine 12.5 mg oral tablet 12.5 mg 1 tabs, Oral, TID, as needed for dizziness, # 30 tabs, 0 Refill(s) Start Date: 10/24/14 Status: Ordered meloxicam 15 mg oral tablet See Instructions, TAKE ONE TABLET BY MOUTH EVERY DAY, # 60 tabs, eRx: [facility] #[id number], TAKE ONE TABLET BY MOUTH EVERY DAY Start Date: 11/30/14 Status: Ordered oxybutynin 15 mg/24 hr oral tablet, extended release 15 mg 1 tabs, Oral, Daily, # 42 tabs, 0 Refill(s), Pharmacy: [facility] # [id number], 1 tabs Oral Daily,x6 weeks Start Date: [...] Note Author: Dion Burroughs JR, MD Date: 01/21/15 Assessment/Plan 1.Urinary incontinence in female, Urinary incontinence in female continue doing Kegel's pelvic floor exercises. Will discontinue the Oxybutynin because it makes her urinary incontinence, worst. Recheck in my office in 66 weeks or sooner if needed Ordered: Office Visit Level 3 Est 04698 2.Essential hypertension continue losartan with hydrochlorothiazide. 3.GERD without esophagitis continue medication [id number]. History of kidney stones patient instructed to drink 8-10 glasses of liquids a day, reduce intake of caffeine, red meat, nuts and too much salted food.
--- OUTSIDE RECORDS SUMMARY | 2016-07-07 15:28 | XMS REPORT | Continuity of Care Document ---
Author Author Carlito Valerio MA Ambulatory Address [address] [place] [id number] Phone Unavailable Care Team Providers Care Certified Technician Name Role Phone Sudheer Lenny R[place] Unavailable Payers Payer name Insurance type Covered democrat ID Authorization(s) Unknown Problems Condition Effective Dates (start - stop) Clinical Status Actinic keratosis - *Chronic Upper Respiratory Infection, Acute - *Acute Elevated blood pressure reading without diagnosis of hypertension - *Acute HEMATURIA NOS - *Acute NEED FOR PROPHYLACTIC VACCINATION WITH COMBINED [id number] ( DTP) (DTAP) VACCINE - Hypertension, Benign - *Chronic GERD - *Chronic Osteoarthrosis, generalized, involving unspecified site - * Chronic Calculus of kidney - *Chronic Hypertension, Benign - Chronic GERD - Chronic Osteoarthrosis, generalized, involving unspecified site - Chronic Calculus of kidney - Chronic Back pain - *Chronic Calculus of kidney - *Acute Obesity - [...] SULINDAC Unknown SULFA (SULFONAMIDE ANTIBIOTICS) Unknown HYDROCODONE BIT Unknown CODEINE SULFATE gi upset Unknown MEPERIDINE HCL Unknown ACETAMINOPHEN Unknown Medications Medication Instructions Dosage Effective Dates (start - stop) Status Tylenol Extra Strength Rapid Release 500 mg [...] Date Status Comments Tdap (Boostrix r) completed Zoster completed - Completed reason: previously given pneumo (2 yrs or older) (PPV23) completed - Completed reason: previously given Results Test Name Date and Time Measure Units Reference Range Abnormal Flag Comments Unknown Vital Signs Date / Time: Height Weight Pulse Rate Blood Pressure Temperature /16:07:00 65.00 in 246.00 lbs 72 /min 148/90 mm[Hg] 98.4 F Procedures Procedure Date Unknown Encounters Encounter Location Date Patient Visit [facility] Patient Visit Patient Visit [facility] Patient Visit [facility] Patient Visit [facility] Patient Visit [facility] Patient Visit [facility] Patient Visit [facility] Patient Visit [facility] New Urology Patient Visit [facility] Patient Visit [facility] Urology Patient Visit [facility] New Patient Visit [facility] New Urology Patient Visit [facility] New Urology Patient Visit [facility] Advance Directives Directive Effective Date Unknown
--- OUTSIDE RECORDS SUMMARY | 2016-07-07 15:28 | XMS REPORT | Referral Summary ---
Author Author [facility] Organization [facility] Address Unknown Phone Unavailable Care Team Providers Care Health Lead Name Role Phone Calin Willard Primary Care Physician [phone] Encounter VC Date(s): 12/30/15 - 12/30/15 [facility] [address] [place] [address] [place] [phone]- Discharge Diagnosis: Overactive bladder Discharge Disposition: 01-Home or Self Care Attending Physician: Moe Hernández MD Admitting Physician: Moe Hernández MD Vital Signs Most recent to 1 oldest [Reference Range]: Peripheral Pulse 84 bpm Rate [60-100 bpm] (12/30/15 8:57 AM) Blood Pressure 138/84 mmHg [90-140/60-90 mmHg] (12/30/15 8:57 AM) Problem List Condition Effective Dates Status [...] DAILY, # 30 tabs, 4 Refill(s), eRx: [facility] #[id number], TAKE ONE TABLET BY MOUTH DAILY Start Date: 04/22/15 Status: Ordered meclizine 12.5 mg oral tablet 12.5 mg 1 tabs, Oral, TID, as needed for dizziness, # 30 tabs, 0 Refill(s) Start Date: 10/24/14 Status: Ordered meloxicam 15 mg oral tablet See Instructions, TAKE ONE TABLET BY MOUTH EVERY DAY, # 60 tabs, 6 Refill(s), Pharmacy: [facility] #[id number], TAKE ONE TABLET BY MOUTH EVERY DAY Start Date: 12/05/15 Status: Ordered tolterodine 4 mg oral capsule, extended release 4 mg 1 caps, Oral, Daily, # 90 caps, 0 Refill(s), Pharmacy: [facility] # [id number], 1 caps Oral Daily,x90 days Start Date: [...] Visit Note Author: Moe Hernández MD Date: 12/30/15 Assessment/Plan Overactive bladder Patient still continues to have symptoms. Will start her on Detrol. Discussed the side effects. We'll see her back in 6 weeks with a renal bladder ultrasoundto evaluate her postvoid residual and also for any evidence of kidney stones. In addition I recommended herto continue doing Keagle's exercises. - We discussed behavorial management of stone disease including increased fluid intake, increased citrate, decreased sodium, decreased animal proteins, decreased oxalate. Ordered: US Retroperitoneal Complete
--- OUTSIDE RECORDS SUMMARY | 2016-07-07 15:29 | XMS REPORT | Referral Summary ---
Author Author [facility] Organization [facility] Address Unknown Phone Unavailable Care Team Providers Care Receiving Associate Store Name Role Phone Cailn Willard Primary Care Physician [phone] Encounter Date(s): 02/12/16 - 02/12/16 [facility] [address] [place], [place] [address] Discharge Diagnosis: Left shoulder pain Discharge Disposition: 01-Home or Self Care [...] DAILY, # 30 tabs, 4 Refill(s), eRx: [facility] #[id number], TAKE ONE TABLET BY MOUTH DAILY Start Date: 3/7/16 Status: Ordered meclizine 12.5 mg oral tablet 12.5 mg 1 tabs, Oral, TID, as needed for dizziness, # 30 tabs, 0 Refill(s) Start Date: 10/24/14 Status: Ordered meloxicam 15 mg oral tablet See Instructions, TAKE ONE TABLET BY MOUTH EVERY DAY, # 60 tabs, 6 Refill(s), Pharmacy: [facility] #[id number], TAKE ONE TABLET BY MOUTH EVERY DAY Start Date: 12/05/15 Status: Ordered tolterodine 4 mg oral capsule, extended release 4 mg 1 caps, Oral, Daily, # 90 caps, 0 Refill(s), Pharmacy: [facility] # [id number], 1 caps Oral Daily,x90 days Start Date: [...] Extracted from: Title: Office Visit Note Author: Nato De La Cruz MD Date: 02/12/16 Assessment/Plan Left shoulder pain Ordered: MRI UE Joint w/o Contrast Left Office Visit Level 3 Est 30251
--- OUTSIDE RECORDS SUMMARY | 2016-07-07 15:29 | XMS REPORT | Referral Summary ---
Author Author [facility] Organization [facility] Address Unknown Phone Unavailable Care Team Providers Care Wheelchair Van Driver Name Role Phone Calin Willard Primary Care Physician [phone] Encounter VC Date(s): 11/27/14 - 11/27/14 [facility] [address] [place] [address] [place] [address]- [place] Discharge Diagnosis: Benign [...] DAILY, # 30 tabs, 4 Refill(s), eRx: [facility] #[id number], TAKE ONE TABLET BY MOUTH DAILY Start Date: 04/22/15 Status: Ordered meclizine 12.5 mg oral tablet 12.5 mg 1 tabs, Oral, TID, as needed for dizziness, # 30 tabs, 0 Refill(s) Start Date: 10/24/14 Status: Ordered meloxicam 15 mg oral tablet See Instructions, TAKE ONE TABLET BY MOUTH EVERY DAY, # 60 tabs, eRx: [facility] #[id number], TAKE ONE TABLET BY MOUTH EVERY DAY [...] Follow Up With: Where: When: Lenny Willard [address] [place] [address] Drive; [place] [address] Business (1) Within 3 to 5 days Comments: Follow Up With: Where: When: Dion Burroughs [address] [place] [address] Drive; [place] [address] [employer] (1) In 6 weeks 01/08/2015 Comments: Extracted [...] weeks. Ordered: Office Visit Level 4 Est 91200 Orders: oxybutynin, 15 mg 1 tabs, Oral, Daily, # 42 tabs, 0 Refill(s), Pharmacy: [facility] #[id number], 1 tabs Oral Daily,x6 weeks
--- OUTSIDE RECORDS SUMMARY | 2016-07-07 15:29 | XMS REPORT | Referral Summary ---
Author Author [facility] Organization [facility] Address Unknown Phone Unavailable Care Team Providers Care Belt Cleaner Name Role Phone Calin Willard Primary Care Physician [phone] Encounter Date(s): 03/06/16 - 03/06/16 [facility] [address] [place], [place] [address] Discharge Diagnosis: Nontraumatic incomplete tear of left rotator cuff Discharge Diagnosis: Biceps tendinitis on left Discharge Disposition: 01-Home or Self Care Attending [...] DAILY, # 30 tabs, 3 Refill(s), eRx: [facility] #[id number] Start Date: 03/03/16 Status: Ordered meclizine 12.5 mg oral tablet 12.5 mg 1 tabs, Oral, TID, as needed for dizziness, # 30 tabs, 0 Refill(s) Start Date: 10/24/14 Status: Ordered meloxicam 15 mg oral tablet See Instructions, TAKE ONE TABLET BY MOUTH EVERY DAY, # 60 tabs, 6 Refill(s), Pharmacy: [facility] #[id number], TAKE ONE TABLET BY MOUTH EVERY DAY Start Date: 12/05/15 Status: Ordered tolterodine 4 mg oral capsule, extended release 4 mg 1 caps, Oral, Daily, # 90 caps, 0 Refill(s), Pharmacy: [facility] # [id number], 1 caps Oral Daily,x90 days Start Date: [...] Diagnosis Body Site Arthrocentesis, aspiration and/or injection, 03/06/16 major joint or bursa (eg, shoulder, hip, knee, subacromial bursa); without ultrasound guidance Mammogram 03/23/11 Colonoscope 10/17/06 DEXA - Dual energy X-ray photon 03/28/03 absorptiometry Cholecystectomy Cystoscopy Hysterectomy L TKA 11/10/2001 Lithotripsy R TKA 12/27/2001 Social History Social History Type Response Smoking Status Never smoker Assessment and Plan No data available for this section
--- OUTSIDE RECORDS SUMMARY | 2016-07-07 15:29 | XMS REPORT | Referral Summary ---
Author Author [facility] Organization [facility] Address Unknown Phone Unavailable Care Team Providers Care Press Puller Name Role Phone Calin Willard Primary Care Physician [phone] Encounter VC Date(s): 11/27/14 - 11/27/14 [facility] [address] [place] [address] [place] [address]- [place] Discharge Diagnosis: Benign [...] DAY, # 30 tabs, 5 Refill(s), eRx: [facility] #[id number], TAKE ONE TABLET BY MOUTH ONCE A DAY Start Date: 07/04/14 Status: Ordered meclizine 12.5 mg oral tablet 12.5 mg 1 tabs, Oral, TID, as needed for dizziness, # 30 tabs, 0 Refill(s) Start Date: 10/24/14 Status: Ordered meloxicam 15 mg oral tablet See Instructions, TAKE ONE TABLET BY MOUTH EVERY DAY, # 60 tabs, eRx: [facility] #[id number], TAKE ONE TABLET BY MOUTH EVERY DAY Start Date: 09/06/14 Status: Ordered oxybutynin 15 mg/24 hr oral tablet, extended release 15 mg 1 tabs, Oral, Daily, # 42 tabs, 0 Refill(s), Pharmacy: [facility] # [id number], 1 tabs Oral Daily,x6 weeks Start Date: [...] Follow Up With: Where: When: Lenny Willard [address] [place] [address] Drive; [place] [address] Business (1) Within 3 to 5 days Comments: Follow Up With: Where: When: Dion Burroughs [address] [place] [address] Drive; [place] [address] [employer] (1) In 6 weeks 01/08/2015 Comments: Extracted [...] weeks. Ordered: Office Visit Level 4 Est 59122 Orders: oxybutynin, 15 mg 1 tabs, Oral, Daily, # 42 tabs, 0 Refill(s), Pharmacy: [facility] #[id number], 1 tabs Oral Daily,x6 weeks
--- NOTE | 2016-07-07 15:33 | NUR ---
ADMIT PATIENT ADMITTED TO ROOM 135 AT THIS TIME VIA WHEELCHAIR AND VOLUNTEER STAFF MEMBER. PATIENT A/OX3. DAUGHTER AT BEDSIDE. PT DENIES N/V, CHEST PAIN, AND SOA. BED IN THE LOWEST POSITION, CALL LIGHT WITHIN REACH, SIDE RAILS UPX2, AND BED ALARM ON. WILL CONTINUE TO MONITOR.
[2016-07-07 15:41] VITALS: Ht 162.6 cm; Wt 103.4 kg
[2016-07-07] MEDS ORDERED: POTASSIUM CHLORIDE 20 MEQ in NORMAL SALINE 1,000 ML IV SCH (15:43)
[2016-07-07] MEDS ORDERED: MECLIZINE 25 MG TABLET PO PRN (15:45)
[2016-07-07] MEDS ORDERED: PRN ORDERS MC (15:45)
[2016-07-07] MEDS ORDERED: CETIRIZINE 10 MG TABLET PO PRN (15:45)
[2016-07-07 15:46] VITALS: BP 162/85; PULSE 88; RESP 18; TEMP 97.5; O2SAT 94
--- NOTE | 2016-07-07 15:57 | HPPDOC ---
KATHERYN WOLFF 07/07/16 1541: HPI - Adult Date DATE: 07/07/16 TIME: 15:35 General Chief Complaint: sepsis, UTI History of Present Illness Jordin Sanchez is a very pleasant 75-year-old female who was a direct admit from the clinic due to sepsis and UTI. She reports that last evening, , around 11:30 pm, she began feeling nauseous and started vomiting with dry heaves. She reports that she was up vomiting almost every hour throughout the night. Prior to that, she states that she was feeling fine. She reports that she tried to eat some ice chips and take sips of water throughout the night, but would vomit after each attempt. She also reports episodes of incontinence with standing and when vomiting which is apparently new for her. She denies any known fevers but admits to having chills at home. She denies any chest pain , shortness of breath, abdominal pain, diarrhea, dysuria or hematuria. Her daughter is present on exam and recalls that her mother was recently treated with azithromycin for bronchitis from 06/25/16-06/30/16. Mrs. Sanchez reports that her cough had resolved following treatment with the azithromycin but returned last evening, just prior to vomiting. She denies any recent bad food or exposure to sick contacts with similar symptoms. In light of her symptoms and not feeling well, she presented to her PCP's office this morning for further evaluation. She was seen by Marychuy Carroll APRN in the clinic and underwent a thorough work up including labs and imaging. Vital signs on presentation to the clinic revealed she was febrile at 38.5 C and tachycardic with heart rate 92. CBC revealed leukocytosis with WBC at 23.3 with 73% neutrophils and no bands, hemoglobin 12.3 and platelets 364. BMP was obtained and revealed hypernatremia at 146 with hyperosmolality and hypokalemia with potassium at 3.5. BUN was 24 and SCr was 1.2. Glucose normal at 95. UA in the clinic is reported to show + leukocytes and nitrites and trace blood. CXR showed mild chronic appearing increased interstitial markings without acute consolidation, pleural fluid or other acute findings. In light of her UTI and apparent sepsis as indicated by her leukocytosis, tachycardia and fever, Dr. Jacobsen was contacted and she was directly admitted into observation status for further evaluation and treatment. On exam, Mrs. Sanchez is seen immediately upon her arrival to room 135. Her daughter accompanies her and contributes to her history as well as prior records. She is resting in bed and is alert and orientated x 3. Mucous membranes are tacky. Cardiac exam reveals tachycardia with irregular rhythm. She denies a history of a-fib or cardiac history. Lungs are clear to auscultation bilaterally without cough, congestion or respiratory distress. No wheezing. Abdomen is soft, nontender with active bowel sounds. 1-2+ edema noted to bilateral lower extremities and SCDs in place. 2+ pedal pulses bilaterally and varices noted to feet and lower extremities. She is cooperative and pleasant on exam. Past Medical History Past Medical History Patient's Medical History: (1) Allergic rhinitis (2) Hypertension (3) GERD (gastroesophageal reflux disease) (4) Osteoarthritis (5) Sciatica (6) Kidney stone Surgical History Patient's Surgical History: Cholecystectomy. Cystoscopy. Hysterectomy. Left TKA - 11/10/2001. Right TKA - 12/27/2001. Colonscopy - 10/17/2006. Lithrotripsy. Current Medications Home Meds Reported Medications Meloxicam (Mobic) 15 Mg Tablet, 15 MG PO DAILY, TAB 12/06/12 Acetaminophen (Tylenol Arthritis) 650 Mg Tablet, 650 MG PO PRN 03/04/12 Losartan/Hydrochlorothiazide (Losartan-Hctz 50-12.5 Mg Tab) 1 Each Tablet, 1 TAB PO DAILY 01/22/12 Hydrochlorothiazide (Hydrochlorothiazide) 25 Mg Tablet, 12.5 MG PO DAILY Y 01/21/12 Cetirizine Hcl (Zyrtec) 5 Mg Tablet, 5 MG PO PRN 02/18/11 Meclizine Hcl (Meclizine Hcl) 25 Mg Tablet, 25 MG PO PRN 02/18/11 Allergies: Coded Allergies: Sulfa (Sulfonamide Antibiotics) (Verified Allergy, Mild, RASH & N&V, ) acetaminophen (Verified Allergy, Unknown, HALLUCINATE, 07/07/16) oxycodone HCl (Verified Allergy, Unknown, HALLUCINATE, 07/07/16) cefuroxime axetil (Verified Adverse Reaction, Mild, N&V, 10/17/08) hydrocodone bit (Verified Adverse Reaction, Mild, N&V, 10/17/08) meperidine HCl (Verified Adverse Reaction, Mild, N&V, 10/17/08) sulindac (Verified Adverse Reaction, Mild, N&V, 10/17/08) codeine (Verified Adverse Reaction, Unknown, GI UPSET, 07/07/16) Family History Family History: Mother - demenia, diabetes, hypertension. Father - hypertension, CHF. Sister - hypertension. Paternal Grandmother - breast cancer. Social History Smoking Status: Never smoker Does patient use chewing tobac: No Substance Use Type: does not use Alcohol Intake: none Marital Status: Sexuality: male partner Social History Comments PCP - Marychuy Carroll APRN. Review of Systems Constitutional: REPORTS: appetite decrease, chills, fatigue, fever, weakness ( generalized), DENIES: dizziness, syncope Eyes General: DENIES: photophobia Vision: DENIES: blurring, double vision ENMT Hearing: REPORTS: hearing loss (chronic) Nose: FOUND: allergies, NOT FOUND: nosebleeds Mouth/Throat: REPORTS: dry mouth, DENIES: sore throat Cardiovascular DENIES: chest pain, dyspnea on exertion Vascular: pedal edema, varicosities, DENIES: pallor of an extremity, unilateral swelling Pulmonary Respiratory: DENIES: cough, dyspnea, pleuritic chest pain, sputum, tachypnea GI Upper Abdomen: nausea, vomiting, DENIES: dysphagia, heartburn/indigestion, hematemesis, pain Lower Abdomen: DENIES: blood in stool, diarrhea, pain General: incontinence, renal stones, DENIES: burning, dysuria, pain Musculoskeletal General: weakness (generalized), DENIES: pain Integumentary Skin: DENIES: rash Neurological General: headache (generalized - similar to prior headaches), weakness ( generalized), DENIES: numbness, seizures, syncope, vertigo Psychiatric Psychiatric: DENIES: depression Endocrine DENIES: polydipsia Hematologic/Lymphatic DENIES: anemia All Other Systems All Other Systems: Reviewed (remainder of 10-point ROS Neg.) Physical Exam General General Nourishment: well nourished, well developed, obese, adult General Body Habitus: well groomed Eyes Brief: FOUND: PERRL, NOT FOUND: scleral icterus ENMT Brief: FOUND: normal dentition Comments tacky mucous membranes Neck Brief: FOUND: midline, NOT FOUND: nuchal rigidity, tracheal deviation Respiratory Inspection: NOT FOUND: accessory muscle use, audible stridor, audible wheezing , tachypnea Palpation: NOT FOUND: tenderness Auscultation: FOUND: normal, NOT FOUND: wheezes Breasts: FOUND: symmetric Cardiovascular Auscultation: FOUND: S1, S2, extrasystoles, irregular Peripheral Pulses: 2+: Dorasalis Pedis (L), Dorsalis Pedis (R), Radial (L), Radial (R) Edema: 0: Anasarca, Arm (L), Arm (R), Face, 1+: Leg (L), Leg (R) Abdomen Inspection: NOT FOUND: distention Palpation: FOUND: soft, NOT FOUND: involuntary guarding, rebound, tender, voluntary guarding Auscultation: FOUND: normo active Lymphatic (brief) Lymphatic Brief: NOT FOUND: lymphedema Musculoskeletal (brief) Musculoskeletal Brief: FOUND: extremities move equally, NOT FOUND: deformity, loss of motion Integumentary (brief) Integumentary Brief: FOUND: dry, pink, warm Neurologic (brief) Neurological Brief: NOT FOUND: facial droop Neurologic Mental Status: FOUND: alert, oriented GCS Eye Opening: (4)Spontaneous RN Documented GCS Eye Opening: Verbal: Motor: Total: Cranial Nerves: FOUND: forehead movement Sensation: FOUND: cold, soft touch Other Reflexes: FOUND: great toe movement Psychiatric (brief) FOUND: alert, attentive, oriented Psychiatric Attitude: FOUND: cooperative Laboratory 07/07/16: Labs from [facility] - CBC: WBC 23.3, Hgb 12.3, Plt 364. - BMP: NA 146, K 3.5, BUN 24, SCr 1.2, Glu 95. - UA: + leuk, + nitr, trace blood Sepsis Diagnostic Criteria Sepsis Confirmed/Suspected Infection: Yes SIRS Criteria: Temp<=96.8 or >=100.4, Pulse >= 90 beats/min, WBC >=12,000 or <= 4,000 Assessment & Plan Problems: (1) Sepsis Status: Acute Qualifiers: Sepsis type: sepsis due to unspecified organism Qualified Codes: A41.9 - Sepsis, unspecified organism Assessment & Plan: present on admission secondary to UTI as indicated by: * Leukocytosis - WBC 23.3. * Fever - 38.5 C * Tachycardia - 92. * (2) UTI (urinary tract infection) Status: Acute Qualifiers: Urinary tract infection type: acute cystitis Hematuria presence: with hematuria Qualified Codes: N30.01 - Acute cystitis with hematuria Assessment & Plan: present on admission. (3) Nausea & vomiting Status: Acute Qualifiers: Vomiting type: unspecified Vomiting Intractability: non-intractable Qualified Codes: R11.2 - Nausea with vomiting, unspecified (4) Hyperosmolality and hypernatremia Status: Acute (5) Hypokalemia Status: Acute (6) Dehydration Status: Acute Assessment & Plan: present on admission. (7) Hypertension Status: Chronic Qualifiers: Hypertension type: essential hypertension Qualified Codes: I10 - Essential (primary) hypertension (8) Sciatica Status: Chronic Qualifiers: Laterality: right Qualified Codes: M54.31 - Sciatica, right side (9) Osteoarthritis Status: Chronic Qualifiers: Osteoarthritis location: multiple joints Osteoarthritis type: primary Qualified Codes: M15.0 - Primary generalized (osteo)arthritis (10) GERD (gastroesophageal reflux disease) Status: Chronic Qualifiers: Esophagitis presence: esophagitis presence not specified Qualified Codes: K21.9 - Gastro-esophageal reflux disease without esophagitis (11) Allergic rhinitis Status: Chronic Qualifiers: Allergic rhinitis trigger: unspecified Allergic rhinitis seasonality: unspecified seasonality Qualified Codes: J30.9 - Allergic rhinitis, unspecified Plan/Intensity of Service 07/07/16: [place]. ADMIT. 1. Sepsis secondary to UTI as indicated by fever, leukocytosis, tachycardia, present on admission. * Direct admit to observation status under the care of Dr. Jacobsen for further evaluation and treatment. * Obtain blood cultures x 2, lactic acid and procalcitonin for further evaluation of sepsis. * Initiate NS with KCl 20 mEq at 125cc/hr for fluid resuscitation and potassium replacement. * Tylenol and ibuprofen for fever/pain. * Leukocytosis upon admission with WBC at 23.3. Monitor trends closely and repeat CBC in AM. 2. UTI: * UA in clinic revealed + leuk, + nitrite and trace blood - culture pending. * Initiate empiric treatment with Levaquin 750mg IV daily for coverage of urinary pathogens once blood cultures have been obtained in light of allergy to cephalosporins. Monitor closely for signs of adverse reactions. 3. Nausea and vomiting: * Zofran 4mg IV Q6H PRN nausea/vomiting. * Currently patient is NPO but is able to progress her diet as tolerated. Discussed with nursing. 4. Hypernatremia, hyperosmolality, hypokalemia: * Most likely secondary to vomiting and dehydration. NS with KCl 20 mEq at 125cc/hr for fluid resuscitation and supplementation of hypokalemia as potassium was 3.5 on admission. Will recheck BMP in AM to monitor electrolytes and renal function. 5. Hypertension: * Continue home Hyzaar 50/12.5 for hypertension; monitor blood pressures closely. * Irregular rhythm noted on exam. Will monitor closely on telemetry in light of hypokalemia, dehydration and potassium replacement therapy. 6. Sciatica and osteoarthritis: * Continue home Mobic as needed for pain. 7. GERD: * Patient denies current treatment. Monitor and treat if needed. 8. Allergic Rhinitis: * Continue home zyrtec. Upon the patient's discharge, her care will be returned to her PCP. DVT Prophylaxis: SCD'S Code Status Hospital Course Summary Disclaimer The hospital course summary below is not to be considered part of the above Progress Note. Hospital Course Summary 07/07/16: Jeannie. ADMIT. 1. Sepsis secondary to UTI as indicated by fever, leukocytosis, tachycardia, present on admission. * Direct admit to observation status under the care of Dr. Jacobsen for further evaluation and treatment. * Obtain blood cultures x 2, lactic acid and procalcitonin for further evaluation of sepsis. * Initiate NS with KCl 20 mEq at 125cc/hr for fluid resuscitation and potassium replacement. * Tylenol and ibuprofen for fever/pain. * Leukocytosis upon admission with WBC at 23.3. Monitor trends closely and repeat CBC in AM. 2. UTI: * UA in clinic revealed + leuk, + nitrite and trace blood - culture pending. * Initiate empiric treatment with Levaquin 750mg IV daily for coverage of urinary pathogens once blood cultures have been obtained in light of allergy to cephalosporins. Monitor closely for signs of adverse reactions. 3. Nausea and vomiting: * Zofran 4mg IV Q6H PRN nausea/vomiting. * Currently patient is NPO but is able to progress her diet as tolerated. Discussed with nursing. 4. Hypernatremia, hyperosmolality, hypokalemia: * Most likely secondary to vomiting and dehydration. NS with KCl 20 mEq at 125cc/hr for fluid resuscitation and supplementation of hypokalemia as potassium was 3.5 on admission. Will recheck BMP in AM to monitor electrolytes and renal function. 5. Hypertension: * Continue home Hyzaar 50/12.5 for hypertension; monitor blood pressures closely. * Irregular rhythm noted on exam. Will monitor closely on telemetry in light of hypokalemia, dehydration and potassium replacement therapy. 6. Sciatica and osteoarthritis: * Continue home Mobic as needed for pain. 7. GERD: * Patient denies current treatment. Monitor and treat if needed. 8. Allergic Rhinitis: * Continue home zyrtec. Upon the patient's discharge, her care will be returned to her PCP. ROBERT JACOBSEN MD 07/07/161939: Past Medical History Current Medications Home Meds Reported Medications Meloxicam (Mobic) 15 Mg Tablet, 15 MG PO DAILY, TAB 12/06/12 Acetaminophen (Tylenol Arthritis) 650 Mg Tablet, 650 MG PO PRN 03/04/12 Losartan/Hydrochlorothiazide (Losartan-Hctz 50-12.5 Mg Tab) 1 Each Tablet, 1 TAB PO DAILY 01/22/12 Hydrochlorothiazide (Hydrochlorothiazide) 25 Mg Tablet, 12.5 MG PO DAILY Y 01/21/12 Cetirizine Hcl (Zyrtec) 5 Mg Tablet, 5 MG PO PRN 02/18/11 Meclizine Hcl (Meclizine Hcl) 25 Mg Tablet, 25 MG PO PRN 02/18/11 Allergies: Coded Allergies: Sulfa (Sulfonamide Antibiotics) (Verified Allergy, Mild, RASH & N&V, ) acetaminophen (Verified Allergy, Unknown, HALLUCINATE, 07/07/16) oxycodone HCl (Verified Allergy, Unknown, HALLUCINATE, 07/07/16) cefuroxime axetil (Verified Adverse Reaction, Mild, N&V, 10/17/08) hydrocodone bit (Verified Adverse Reaction, Mild, N&V, 10/17/08) meperidine HCl (Verified Adverse Reaction, Mild, N&V, 10/17/08) sulindac (Verified Adverse Reaction, Mild, N&V, 10/17/08) codeine (Verified Adverse Reaction, Unknown, GI UPSET, 07/07/16) Assessment & Plan Problems: (1) Sepsis Status: Acute Qualifiers: Sepsis type: sepsis due to unspecified organism Qualified Codes: A41.9 - Sepsis, unspecified organism Assessment & Plan: present on admission secondary to UTI as indicated by: * Leukocytosis - WBC 23.3. * Fever - 38.5 C * Tachycardia - 92. * (2) UTI (urinary tract infection) Status: Acute Qualifiers: Urinary tract infection type: acute cystitis Hematuria presence: with hematuria Qualified Codes: N30.01 - Acute cystitis with hematuria Assessment & Plan: present on admission. (3) Nausea & vomiting Status: Acute Qualifiers: Vomiting type: unspecified Vomiting Intractability: non-intractable Qualified Codes: R11.2 - Nausea with vomiting, unspecified (4) Hypokalemia Status: Acute (5) Hyperosmolality and hypernatremia Status: Acute (6) Dehydration Status: Acute Assessment & Plan: present on admission. (7) Hypertension Status: Chronic Qualifiers: Hypertension type: essential hypertension Qualified Codes: I10 - Essential (primary) hypertension (8) Sciatica Status: Chronic Qualifiers: Laterality: right Qualified Codes: M54.31 - Sciatica, right side (9) Osteoarthritis Status: Chronic Qualifiers: Osteoarthritis location: multiple joints Osteoarthritis type: primary Qualified Codes: M15.0 - Primary generalized (osteo)arthritis (10) GERD (gastroesophageal reflux disease) Status: Chronic Qualifiers: Esophagitis presence: esophagitis presence not specified Qualified Codes: K21.9 - Gastro-esophageal reflux disease without esophagitis (11) Allergic rhinitis Status: Chronic Qualifiers: Allergic rhinitis trigger: unspecified Allergic rhinitis seasonality: unspecified seasonality Qualified Codes: J30.9 - Allergic rhinitis, unspecified (12) Insomnia Assessment I have independently evaluated and examined this patient. I reviewed the chart, the patient's history, and the PA's documented findings as above. We discussed and formulated the assessment and plan as above with additions as below: Mrs. Sanchez presents with chills overnight accompanied by nausea, dry heaves, and intermittent emesis. She was unaware fever but had elevated temperature when she was seen in the office earlier today. She additionally has history of recurrent nephrolithiasis without any symptomatic stones currently the potential for infected kidney stone. She describes urinary frequency overnight in conjunction with urgency and new onset incontinence. Urinalysis revealed 20- 50 WBCs with positive leukocytes and nitrites. Urine culture is pending. In addition to problems outlined above the patient reports increased anxiety and inability to sleep well recently after her was recently hospitalized. She has not used anything to help with sleep but family members suggested to nursing that this would be necessary and that she may need something for anxiety as well. Patient minimizes symptoms although acknowledges that she has a generalized tendency to be an anxious person. Examination is notable for clear lungs and regular cardiac rhythm. Abdomen is benign and there is no suprapubic tenderness present. No flank tenderness is present. Outpatient labs reviewed with marked leukocytosis as noted and pyuria. Continue antibiotics as described above. IV fluids/antiemetics. Additionally will image kidneys with renal CT to look for perinephric fluid and stone burden which may influence antibiotic choice and duration. Cozaar/HCTZ converted to Cozaar without the diuretic due to dehydration. Benadryl when necessary for sleep, low-dose alprazolam ordered if needed for anxiety. Plan/Intensity of Service Outpatient records reviewed, discussed with Olamide Carroll APRN, laboratory data reviewed, renal CT ordered. KATHERYN WOLFF July 07, 2016 15:41 ROBERT JACOBSEN MD July 07, 2016 19:40
[2016-07-07] MEDS: NS KCL 20 MEQ 1,000 ML IV SCH (17:59)
[2016-07-07] MEDS: LEVOFLOXACIN 750 mg IVPB 750 MG in D5W 150 ML IV SCH (18:18)
[2016-07-07] MEDS ORDERED: DiphenhydrAMINE 25 MG CAPSULE PO PRN (19:45)
[2016-07-07 20:29] VITALS: PULSE 95; RESP 16; TEMP 98.6; O2SAT 93
[2016-07-07 20:31] VITALS: BP 142/69; PULSE 92
[2016-07-07] MEDS: ONDANSETRON 4mg/2ml INJECTION IV PRN (20:40)
--- NOTE | 2016-07-07 20:40 | NUR ---
NAUSEA SOME NAUSEA STARTING,GAVE 4MG IV ZOFRAN.
[2016-07-07 22:28] VITALS: BP 148/85; PULSE 98; RESP 22; TEMP 99.5; O2SAT 96
[2016-07-07 23:49] VITALS: BP 135/65; PULSE 92; RESP 18; TEMP 100; O2SAT 94
--- NOTE | 2016-07-08 02:58 | NUR ---
Chart Check 24 hour chart check completed
[2016-07-08] MEDS: NS KCL 20 MEQ 1,000 ML IV SCH ×4 (04:00→21:23)
[2016-07-08 04:06] VITALS: BP 139/80; PULSE 102; RESP 20; TEMP 100; O2SAT 93
[2016-07-08 05:20] LABS: HCT - HEMATOCRIT 32.2 % (36-46); HGB - HEMOGLOBIN 10.5 GM/DL (12-16); MEAN CORPUSCULAR HGB 30.3 UUG (26-34); MEAN CORPUSCULAR HGB CONC(MCHC 32.6 GM/DL (31-37); MEAN CORPUSCULAR VOLUME 92.8 UM3 (80-100); MEAN PLATELET VOLUME 11.1 UM3 (9.4-12.4); RED BLOOD COUNT 3.47 M/MM3 (4.00-5.20); WBC - WHITE BLOOD COUNT 19.1 T/MM3 (4.5-11.0)
[2016-07-08 05:33] LABS: ANION GAP 10 MEQ/L (5-15); BUN/CREATININE RATIO 16 RATIO (6-26); CALCIUM 8.7 MG/DL (8.4-10.2); CHLORIDE 106 MEQ/L (98-107); CO2 - CARBON DIOXIDE 25 MEQ/L (22-30); GLOMERULAR FILTRATION RATE 54; GLUCOSE 102 MG/DL (65-110); POTASSIUM 4.4 MEQ/L (3.6-5); SODIUM 141 MEQ/L (134-144)
--- NOTE | 2016-07-08 06:32 | NUR ---
SUMMARY SLEPT MOST OF SHIFT OTHER THAN WHEN AWAKE FOR CARES. EASY TO AWAKEN, ALERT AND ORIENTED X3. UP WITH STAND BY ASSIST. DENIED DIZZINESS. NO OTHER REPORTS OF NAUSEA OTHER THAN WHEN GIVEN ZOFRAN AT BEGINNING OF SHIFT. TEMP REMAINS ELEVATED AT 100.0, AT 0400 VITALS PT NO LONGER FEELING CHILLS AND WAS ABLE TO REMOVE 1 OF MANY BLANKETS. PT DENIED NEEDING BENADRYL OR XANAX WHEN OFFERED FOR REST. DENIED DISCOMFORT OTHER THAN MILD HEADACHE, DENIED NEED FOR TYLENOL. WEARING A PAD IN UNDERWEAR, MAY HAVE MILD INCONTINENCE, PADS AVAILABLE IN BATHROOM. URINE CULTURE SENT LAST EVENING.
[2016-07-08 07:04] VITALS: BP 128/70; PULSE 101; RESP 17; TEMP 100.1; O2SAT 94
[2016-07-08 07:13] LABS: LYMPHOCYTES # (MANUAL) 2.7 T/MM3 (1-4.8); MONOCYTES # (MANUAL) 1.1 T/MM3 (0-0.8); NEUTROPHILS #(MANUAL)-ABSOLUTE 15.3 T/MM3 (1.8-7.7); TOTAL CELLS COUNTED 100 %
[2016-07-08] MEDS: ONDANSETRON 4mg/2ml INJECTION IV PRN ×2 (08:50→18:19)
[2016-07-08] MEDS: ALPRAZOLAM 0.25 MG TABLET PO PRN ×2 (08:50→21:22)
[2016-07-08] MEDS ORDERED: LOSARTAN-HCTZ 50-12.5 MG TAB PO SCH (09:00)
[2016-07-08] MEDS: LOSARTAN 100 MG TABLET PO SCH (09:30)
[2016-07-08] MEDS: MELOXICAM 15 MG PO SCH (09:31)
--- NOTE | 2016-07-08 09:40 | DI ---
Indication: ITS.REASON: history nephrolithiasis, UTI-no acute stone symptoms PROCEDURE: CT RENAL W/O CONTRAST: Encounter: Initial Comparison: None Technique: Axial CT images were performed through the abdomen and pelvis without intravenous contrast. Coronal and sagittal two-dimensional reformats. Automated Exposure Control and Iterative Reconstruction dose reducing techniques were utilized. Findings: Minimal atelectasis in the lung bases. The unenhanced contours of the liver are grossly normal. Gallbladder is not seen and presumed surgically absent. The spleen, pancreas and adrenal glands are within normal limits. The right kidney appears normal. Left kidney shows perinephric stranding with some stone debris in the interpolar area and mild hydronephrosis. No ureteral stone identified. Bladder appears grossly normal. Uterus is absent. No free fluid. Left colonic diverticulosis without acute diverticulitis. The appendix is normal. No evidence of a bowel obstruction. Small fat-containing left inguinal hernia. Bone windows show degenerative changes in the spine. Impression: Perinephric stranding surrounding the left kidney could be due to acute pyelonephritis or recently passed stone. Recommend clinical and laboratory correlation. .
[2016-07-08] MEDS: ACETAMINOPHEN 325 MG TABLET PO PRN ×2 (09:53→22:48)
[2016-07-08] MEDS ORDERED: MAG-AL + SIM LIQUID 30 ML UDC PO PRN (10:00)
[2016-07-08] MEDS ORDERED: BISACODYL 10 MG SUPPOSITORY RECTALLY PRN (10:00)
[2016-07-08] MEDS ORDERED: PRN ORDERS MC (10:00)
[2016-07-08] MEDS ORDERED: ACETAMINOPHEN 325 MG SUPPOSITORY RECTALLY PRN (10:00)
[2016-07-08] MEDS ORDERED: MILK OF MAGNESIA 30 ML SUSP PO PRN (10:00)
[2016-07-08 11:22] VITALS: BP 122/70; PULSE 95; RESP 17; TEMP 99.5; O2SAT 93
--- NOTE | 2016-07-08 13:01 | NUR ---
CM CM IN TO VISIT WITH PT. CM EXPLAINED ROLE AND PROVIDED CONTACT INFORMATION. PT DENIES HOME NEEDS AND IS AWARE TO CALL CM SHOULD NEEDS ARISE.
[2016-07-08] MEDS ORDERED: SENNA + DOCUSATE TAB PO PRN (14:15)
--- NOTE | 2016-07-08 14:56 | PNPDOC ---
Subjective Date DATE: 07/08/16 TIME: 14:41 Subjective Mrs. Sanchez continues to have nausea this morning. She was able to have several sips of cranberry juice and a bite or 2 of ice this morning after which nausea intensified and she required administration of Zofran IV. Was able to tolerate more fluid at lunch. No chilling overnight but temperatures up to 100.1. She has developed some mild left flank discomfort in addition to usual back pain. Appetite is very poor. She denied dyspnea, cough, or palpitations. Objective Vital Signs Vital signs Vital Signs Date Time Temp Pulse Resp B/P Pulse Ox O2 Delivery O2 Flow Rate FiO2 07/08/16 11:22 99.5 95 17 122/70 93 Room Air EXAM General-NAD, alert, soft-spoken HEENT-conjunctiva clear, sclera anicteric, oropharynx clear Lungs-respirations nonlabored, good airflow, breath sounds clear anteriorly/ posteriorly Cardiac-irregular rhythm, S1-S2; telemetry reviewed-sinus rhythm with frequent PACs Abd-abdomen soft, nontender except mild discomfort on palpation of lateral left abdomen/left flank without guarding. Bowel sounds diminished Ext-without edema Neuro-moving extremities symmetrically/well Psych-calm, flat affect - Height (Feet): 5 Height (Inches): 4.00 Weight (Kilograms): 104.700 Laboratory Laboratory Laboratory Tests 07/08/16 04:31 Laboratory Tests 07/08/16 04:31 Segs 80, lymphs at 14, monocytes 6 Lactic acid 0.8, procalcitonin 0.08 EKG Telemetry strips reviewed-as previously noted frequent PACs Microbiology Microbiology Microbiology Date/Time Source Procedure Growth Status 07/07/16 16:39 Peripheral/Iv Start Blood Culture - Preliminary CULTURE INITIATED - RESULTS PENDING Resulted 07/07/16 16:39 Peripheral/Iv Start Blood Culture - Preliminary CULTURE INITIATED - RESULTS PENDING Resulted 07/07/16 20:44 Urine, Clean Catch-Midstream Urine Culture - Preliminary CULTURE INITIATED - RESULTS PENDING Resulted Outpatient urine culture at [facility] also pending. Radiology CT scan of urinary tract reviewed by myself demonstrating no pathology other than mild perinephric stranding on the left; radiology report some minor stone debris in the left interpolar area and mild hydronephrosis but no stone burden or ureteral stone. Sepsis Diagnostic Criteria Sepsis Confirmed/Suspected Infection: Yes SIRS Criteria: Temp<=96.8 or >=100.4, Pulse >= 90 beats/min, WBC >=12,000 or <= 4,000 Assessment & Plan Problems: (1) Sepsis Status: Acute Qualifiers: Sepsis type: sepsis due to unspecified organism Qualified Codes: A41.9 - Sepsis, unspecified organism Assessment & Plan: present on admission secondary to UTI as indicated by: * Leukocytosis - WBC 23.3. * Fever - 38.5 C * Tachycardia - 92. * (2) UTI (urinary tract infection) Status: Acute Qualifiers: Urinary tract infection type: acute pyelonephritis Qualified Codes: N10 - Acute pyelonephritis Assessment & Plan: present on admission. (3) Nausea & vomiting Status: Acute Qualifiers: Vomiting type: unspecified Vomiting Intractability: non-intractable Qualified Codes: R11.2 - Nausea with vomiting, unspecified (4) Hypokalemia Status: Resolved (5) Hyperosmolality and hypernatremia Status: Resolved (6) Dehydration Status: Resolved Assessment & Plan: present on admission. (7) Hypertension Status: Chronic Qualifiers: Hypertension type: essential hypertension Qualified Codes: I10 - Essential (primary) hypertension (8) Sciatica Status: Chronic Qualifiers: Laterality: right Qualified Codes: M54.31 - Sciatica, right side (9) Osteoarthritis Status: Chronic Qualifiers: Osteoarthritis location: multiple joints Osteoarthritis type: primary Qualified Codes: M15.0 - Primary generalized (osteo)arthritis (10) GERD (gastroesophageal reflux disease) Status: Chronic Qualifiers: Esophagitis presence: esophagitis presence not specified Qualified Codes: K21.9 - Gastro-esophageal reflux disease without esophagitis (11) Allergic rhinitis Status: Chronic Qualifiers: Allergic rhinitis trigger: unspecified Allergic rhinitis seasonality: unspecified seasonality Qualified Codes: J30.9 - Allergic rhinitis, unspecified (12) Insomnia Status: Acute (13) Anxiety Status: Acute Assessment Imaging consistent with left pyelonephritis, no recent acute nephrolithiasis to explain radiographic findings. Urine culture pending. Oral intake remains poor and with ongoing nausea I am concerned about the patient's ability to safely take antibiotics orally at this time. Significant leukocytosis remains present. Discharge at this time seems premature and subjects patient to high risk of treatment failure. Continue IV fluids, IV Levaquin pending culture results. Electrolytes have corrected and creatinine improved with IV fluids. Patient acknowledges increased anxiety in the recent past due to her 's illness (her children have suggested this precedes 's illness) and that she tends to be a nervous person anyway. She took alprazolam this morning and felt it did help with symptomatic control. We discussed options of SSRI to help with sleep and generalized anxiety if medication needed on a semi-regular basis as opposed to use of alprazolam but patient declined at this time feeling that it was unlikely she would need more than infrequent medicine for anxiety. Plan/Intensity of Service CT scan reviewed by myself, discussed with case management, nursing provide supplemental history, laboratory data reviewed, outpatient records reviewed. Code Status Full Code Hospital Course Summary Disclaimer The hospital course summary below is not to be considered part of the above Progress Note. Hospital Course Summary 07/07/16: Jeannie. ADMIT. 1. Sepsis secondary to UTI as indicated by fever, leukocytosis, tachycardia, present on admission. * Direct admit to observation status under the care of Dr. Jacobsen for further evaluation and treatment. * Obtain blood cultures x 2, lactic acid and procalcitonin for further evaluation of sepsis. * Initiate NS with KCl 20 mEq at 125cc/hr for fluid resuscitation and potassium replacement. * Tylenol and ibuprofen for fever/pain. * Leukocytosis upon admission with WBC at 23.3. Monitor trends closely and repeat CBC in AM. 2. UTI: * UA in clinic revealed + leuk, + nitrite and trace blood - culture pending. * Initiate empiric treatment with Levaquin 750mg IV daily for coverage of urinary pathogens once blood cultures have been obtained in light of allergy to cephalosporins. Monitor closely for signs of adverse reactions. 3. Nausea and vomiting: * Zofran 4mg IV Q6H PRN nausea/vomiting. * Currently patient is NPO but is able to progress her diet as tolerated. Discussed with nursing. 4. Hypernatremia, hyperosmolality, hypokalemia: * Most likely secondary to vomiting and dehydration. NS with KCl 20 mEq at 125cc/hr for fluid resuscitation and supplementation of hypokalemia as potassium was 3.5 on admission. Will recheck BMP in AM to monitor electrolytes and renal function. 5. Hypertension: * Continue home Hyzaar 50/12.5 for hypertension; monitor blood pressures closely. * Irregular rhythm noted on exam. Will monitor closely on telemetry in light of hypokalemia, dehydration and potassium replacement therapy. 6. Sciatica and osteoarthritis: * Continue home Mobic as needed for pain. 7. GERD: * Patient denies current treatment. Monitor and treat if needed. 8. Allergic Rhinitis: * Continue home zyrtec. Upon the patient's discharge, her care will be returned to Dr. Willard and Olamide Carroll APRN. 07/08/16 Imaging consistent with left pyelonephritis, no recent acute nephrolithiasis to explain radiographic findings. Urine culture pending. Oral intake remains poor and with ongoing nausea I am concerned about the patient's ability to safely take antibiotics orally at this time. Significant leukocytosis remains present. Discharge at this time seems premature and subjects patient to high risk of treatment failure. Continue IV fluids, IV Levaquin pending culture results. Electrolytes have corrected and creatinine improved with IV fluids. Patient acknowledges increased anxiety in the recent past due to her 's illness (her children have suggested this precedes 's illness) and that she tends to be a nervous person anyway. She took alprazolam this morning and felt it did help with symptomatic control. We discussed options of SSRI to help with sleep and generalized anxiety if medication needed on a semi-regular basis as opposed to use of alprazolam but patient declined at this time feeling that it was unlikely she would need more than infrequent medicine for anxiety. ROBERT JACOBSEN MD July 08, 2016 14:46
[2016-07-08 15:13] VITALS: BP 128/63; PULSE 80; RESP 18; TEMP 97.7; O2SAT 92
--- NOTE | 2016-07-08 15:38 | NUR ---
NOTIFIED PT ADVANCED TO FULL LIQUID DIET WITH TOAST AND CRACKERS
[2016-07-08] MEDS: LEVOFLOXACIN 750 mg IVPB 750 MG in D5W 150 ML IV SCH (16:42)
--- NOTE | 2016-07-08 18:39 | NUR ---
STATUS PT CURRENTLY RESTING IN BED WITH BED ALARM ON AND CALL LIGHT IN REACH. PT DENIES NEEDS AT THIS TIME. ON ROOM AIR. BREATHING EQUAL AND UNLABORED.
--- NOTE | 2016-07-08 19:00 | NUR ---
PT ESCORTED OUT VIA WHEELCHAIR TO FRONT WITH TO DRIVE HOME. BELONGINGS WITH PT. THANKED PT FOR CHOOSING [facility] Addendum: 07/08/16 at 1918 by [employer] ANDREW RN ERROR WRONG PT CHART
[2016-07-08 19:15] VITALS: BP 145/75; PULSE 91; RESP 16; TEMP 98.4; O2SAT 95
[2016-07-08 22:54] VITALS: BP 159/89; PULSE 100; RESP 20; TEMP 98.9; O2SAT 91
[2016-07-09] VITALS (7 sets, daily range): BP systolic 129–155; BP diastolic 80–101; PULSE 77–97; RESP 16–20; TEMP 98.1–98.8; O2SAT 94
--- NOTE | 2016-07-09 | NUR ---
Status: Pt c/o persistent cough. Pt denies any sputum. Pt states it is dry and persistent. Notified Dr. Umanzor via [employer]. states he will place orders for Tessalon perles and mucinex PRN. Will continue to monitor.
--- NOTE | 2016-07-09 00:50 | NUR ---
Chart Check 24 hour chart check completed
[2016-07-09 05:23] LABS: BASOPHILS % (AUTO) 0.2 % (0-2); EOSINOPHILS # (AUTO) 0.1 T/MM3 (0-0.5); EOSINOPHILS % (AUTO) 0.7 % (0-4); HCT - HEMATOCRIT 31.7 % (36-46); HGB - HEMOGLOBIN 9.8 GM/DL (12-16); IMMATURE GRANULOCYTE # (AUTO) 0.06 T/MM3 (0.00-0.03); IMMATURE GRANULOCYTE % (AUTO) 0.5 % (0.0-0.5); LYMPHOCYTES # (AUTO) 2.2 T/MM3 (1-4.8); LYMPHOCYTES % (AUTO) 18.7 % (23-45); MEAN CORPUSCULAR HGB 29.6 UUG (26-34); MEAN CORPUSCULAR HGB CONC(MCHC 30.9 GM/DL (31-37); MEAN CORPUSCULAR VOLUME 95.8 UM3 (80-100); MEAN PLATELET VOLUME 10.9 UM3 (9.4-12.4); MONOCYTES # (AUTO) 1.4 T/MM3 (0-0.8); MONOCYTES % (AUTO) 11.5 % (0-9.0); NEUTROPHILS #(AUTO)-ABSOLUTE 8.1 T/MM3 (1.8-7.7); NEUTROPHILS % (AUTO) 68.4 % (33-66); RED BLOOD COUNT 3.31 M/MM3 (4.00-5.20); WBC - WHITE BLOOD COUNT 11.8 T/MM3 (4.5-11.0)
--- NOTE | 2016-07-09 05:24 | NUR ---
SUMMARY ONE PERSON STAND BY ASSIST TO AMBULATE TO THE BATHROOM. MEDICATED WITH XANAX AT HS PER PATIENT REQUEST FOR REST. MEDICATED WITH TYLENOL FOR COMPLAINTS OF GENERALIZED DISCOMFORT. REPORTS RELIEF OF DISCOMFORT THIS AM. RESTED THROUGH MOST OF THE NIGHT WITH EYES CLOSED. WILL CONTINUE TO MONITOR.
[2016-07-09 05:29] LABS: ANION GAP 10 MEQ/L (5-15); BUN/CREATININE RATIO 12 RATIO (6-26); CALCIUM 8.7 MG/DL (8.4-10.2); CHLORIDE 110 MEQ/L (98-107); CO2 - CARBON DIOXIDE 23 MEQ/L (22-30); CREATININE 1.1 MG/DL (0.7-1.2); GLOMERULAR FILTRATION RATE 48; GLUCOSE 97 MG/DL (65-110); MAGNESIUM 1.3 MG/DL (1.6-2.3); POTASSIUM 4.7 MEQ/L (3.6-5); SODIUM 143 MEQ/L (134-144)
[2016-07-09] MEDS: NS KCL 20 MEQ 1,000 ML IV SCH ×2 (05:36→16:17)
--- NOTE | 2016-07-09 08:00 | NUR ---
RECEIVED REPORT PATIENT IS ALERT AND ORIENTED. DENIES PAIN OR ANY OTHER CONCERNS. DENIES NAUSEA. PATIENT IS CURRENTLY ON FULL LIQUID DIET WITH TOAST AND CRACKERS. NS@125ML/HR. PATIENT IS UP WITH ONE ASSIST.
[2016-07-09] MEDS: MELOXICAM 15 MG PO SCH (09:21)
[2016-07-09] MEDS: LOSARTAN 100 MG TABLET PO SCH (09:21)
[2016-07-09] MEDS: POLYETHYL.GLYCOL 3350 PACKET 17gm PO SCH (09:24)
--- NOTE | 2016-07-09 10:01 | NUR ---
CM CM IN TO VISIT PATIENT, SHE CONFIRMS DISCHARGE PLAN TO GO HOME WITH SON AND DAUGHTER'S ASSISTANCE. DENIES DISCHARGE NEEDS. THIS CM CONTACT INFORMATION PROVIDED.
[2016-07-09] MEDS: MAGNESIUM SULFATE 1 G in D5W 100 ML IV SCH ×2 (11:11→12:20)
[2016-07-09] MEDS: LEVOFLOXACIN 750 mg IVPB 750 MG in D5W 150 ML IV SCH (16:17)
--- NOTE | 2016-07-09 16:30 | NUR ---
Care This RN assumed care of patient from [id number]. Teofilo RN returned to floor and received verbal update on patients and resumed care of patients.
--- NOTE | 2016-07-09 17:10 | NUR ---
DECREASE FLUID RATE PATIENT IS NOW RUNNING FLUIDS AT 50ML/HR
--- NOTE | 2016-07-09 17:43 | PNPDOC ---
Subjective Date DATE: 07/09/16 TIME: 17:20 Subjective Mrs. Sanchez was seen with her daughter at the bedside. She tolerated toast and juice for breakfast but later tried a grilled cheese sandwich at lunch followed by recurrent nausea. She reports having sweats overnight and having abdominal discomfort/indigestion from dry heaves earlier area she's had no further emesis and denied dyspnea, cough, fevers or chills, diarrhea, or constipation. The discomfort she was experiencing in her left side yesterday has improved significantly. Objective Vital Signs Vital signs Vital Signs Date Time Temp Pulse Resp B/P Pulse Ox O2 Delivery O2 Flow Rate FiO2 07/09/16 16:18 98.8 94 18 148/101 94 Room Air I/O 3718/1700 Weight up 4.2 kilograms from admission EXAM General-NAD, alert when initially seen but later appeared very fatigued and drawn HEENT-conjunctiva clear, sclera anicteric, oropharynx clear Lungs-respirations nonlabored, airflow good with clear breath sounds anteriorly/ posteriorly Cardiac-regular rhythm, S1-S2; sinus rhythm with mild sinus arrhythmia on telemetry Abd-abdomen is soft and nontender, bowel sounds are present, there is no discomfort on palpation of the left flank today Ext-without edema Neuro-moving all extremities well Psych-calm, slightly flat affect - Height (Feet): 5 Height (Inches): 4.00 Weight (Kilograms): 105.500 Laboratory Laboratory Laboratory Tests 07/08/16 04:31 07/09/16 04:36 Laboratory Tests 07/08/16 04:31 07/09/16 04:36 Segs 68, lymphocytes 19, monocytes 12 Magnesium 1.3 EKG Sinus arrhythmia on telemetry by my review, rate well-controlled Microbiology Microbiology Microbiology Date/Time Source Procedure Growth Status 07/07/16 16:39 Peripheral/Iv Start Blood Culture - Preliminary NO GROWTH AFTER 48 HOURS Resulted 07/07/16 16:39 Peripheral/Iv Start Blood Culture - Preliminary NO GROWTH AFTER 48 HOURS Resulted 07/07/16 20:44 Urine, Clean Catch-Midstream Urine Culture - Final Mixed Gram Positive Organisms Complete Urine culture obtained prior to antibiotics of [facility] growing> 100, 000 colonies gram-negative rods Sepsis Diagnostic Criteria Sepsis Confirmed/Suspected Infection: Yes SIRS Criteria: Temp<=96.8 or >=100.4, Pulse >= 90 beats/min, WBC >=12,000 or <= 4,000 Assessment & Plan Problems: (1) Sepsis Status: Acute Qualifiers: Sepsis type: sepsis due to unspecified organism Qualified Codes: A41.9 - Sepsis, unspecified organism Assessment & Plan: present on admission secondary to UTI as indicated by: * Leukocytosis - WBC 23.3. * Fever - 38.5 C * Tachycardia - 92. * (2) UTI (urinary tract infection) Status: Acute Qualifiers: Urinary tract infection type: acute pyelonephritis Qualified Codes: N10 - Acute pyelonephritis Assessment & Plan: present on admission. Outpatient urine culture > 100,000 colonies GNR (3) Hypomagnesemia Status: Acute Assessment & Plan: Has been previously advised to take [id number] magnesium supplement-chronic HCTZ use (4) Nausea & vomiting Status: Acute Qualifiers: Vomiting type: unspecified Vomiting Intractability: non-intractable Qualified Codes: R11.2 - Nausea with vomiting, unspecified (5) Hypokalemia Status: Resolved (6) Hyperosmolality and hypernatremia Status: Resolved (7) Dehydration Status: Resolved Assessment & Plan: present on admission. (8) Hypertension Status: Chronic Qualifiers: Hypertension type: essential hypertension Qualified Codes: I10 - Essential (primary) hypertension (9) Sciatica Status: Chronic Qualifiers: Laterality: right Qualified Codes: M54.31 - Sciatica, right side (10) Osteoarthritis Status: Chronic Qualifiers: Osteoarthritis location: multiple joints Osteoarthritis type: primary Qualified Codes: M15.0 - Primary generalized (osteo)arthritis (11) GERD (gastroesophageal reflux disease) Status: Chronic Qualifiers: Esophagitis presence: esophagitis presence not specified Qualified Codes: K21.9 - Gastro-esophageal reflux disease without esophagitis (12) Allergic rhinitis Status: Chronic Qualifiers: Allergic rhinitis trigger: unspecified Allergic rhinitis seasonality: unspecified seasonality Qualified Codes: J30.9 - Allergic rhinitis, unspecified (13) Insomnia Status: Acute (14) Anxiety Status: Acute (15) Anemia (16) CKD (chronic kidney disease), stage III Status: Chronic Assessment Clinically improving but continues to have intermittent nausea. Tolerating liquids but poor tolerance of food. Rate of IV fluids decreased but not discontinued. Try oral Levaquin in the morning-if tolerates anticipate can discharge on full liquids or bland diet. Hypomagnesemia present today, patient reports she was previously advised to take an [id number]-vqs-[id number] magnesium supplement but had not initiated yet suggesting chronic hypomagnesemia which may be worsened now due to IV fluids. Replace IV today and will start Mag-Ox 400 mg twice a day thereafter. Recheck a.m. Excess fatigue and minor anxiety ongoing, sleep disruption present-low dose mirtazapine ordered. Describes increased indigestion since nausea and vomiting with pyelonephritis- famotidine initiated daily at bedtime. Blood pressure stable, hydrochlorothiazide remains on hold. Hemoglobin has dropped from 12.3 on date of admission to current value of 9.8 with hydration, normocytic. No evidence of blood loss. We'll review prior outpatient values before making recommendations. Plan/Intensity of Service Discussed with patient's daughter and nurse, laboratory data reviewed. Improving slowly. Code Status Full Code Hospital Course Summary Disclaimer The hospital course summary below is not to be considered part of the above Progress Note. Hospital Course Summary 07/07/16: Jeannie. ADMIT. 1. Sepsis secondary to UTI as indicated by fever, leukocytosis, tachycardia, present on admission. * Direct admit to observation status under the care of Dr. Jacobsen for further evaluation and treatment. * Obtain blood cultures x 2, lactic acid and procalcitonin for further evaluation of sepsis. * Initiate NS with KCl 20 mEq at 125cc/hr for fluid resuscitation and potassium replacement. * Tylenol and ibuprofen for fever/pain. * Leukocytosis upon admission with WBC at 23.3. Monitor trends closely and repeat CBC in AM. 2. UTI: * UA in clinic revealed + leuk, + nitrite and trace blood - culture pending. * Initiate empiric treatment with Levaquin 750mg IV daily for coverage of urinary pathogens once blood cultures have been obtained in light of allergy to cephalosporins. Monitor closely for signs of adverse reactions. 3. Nausea and vomiting: * Zofran 4mg IV Q6H PRN nausea/vomiting. * Currently patient is NPO but is able to progress her diet as tolerated. Discussed with nursing. 4. Hypernatremia, hyperosmolality, hypokalemia: * Most likely secondary to vomiting and dehydration. NS with KCl 20 mEq at 125cc/hr for fluid resuscitation and supplementation of hypokalemia as potassium was 3.5 on admission. Will recheck BMP in AM to monitor electrolytes and renal function. 5. Hypertension: * Continue home Hyzaar 50/12.5 for hypertension; monitor blood pressures closely. * Irregular rhythm noted on exam. Will monitor closely on telemetry in light of hypokalemia, dehydration and potassium replacement therapy. 6. Sciatica and osteoarthritis: * Continue home Mobic as needed for pain. 7. GERD: * Patient denies current treatment. Monitor and treat if needed. 8. Allergic Rhinitis: * Continue home zyrtec. Upon the patient's discharge, her care will be returned to Dr. Willard and Olamide Carroll APRN. 07/08/16 Imaging consistent with left pyelonephritis, no recent acute nephrolithiasis to explain radiographic findings. Urine culture pending. Oral intake remains poor and with ongoing nausea I am concerned about the patient's ability to safely take antibiotics orally at this time. Significant leukocytosis remains present. Discharge at this time seems premature and subjects patient to high risk of treatment failure. Continue IV fluids, IV Levaquin pending culture results. Electrolytes have corrected and creatinine improved with IV fluids. Patient acknowledges increased anxiety in the recent past due to her 's illness (her children have suggested this precedes 's illness) and that she tends to be a nervous person anyway. She took alprazolam this morning and felt it did help with symptomatic control. We discussed options of SSRI to help with sleep and generalized anxiety if medication needed on a semi-regular basis as opposed to use of alprazolam but patient declined at this time feeling that it was unlikely she would need more than infrequent medicine for anxiety. 07/09/16 Clinically improving but continues to have intermittent nausea. Tolerating liquids but poor tolerance of food. Rate of IV fluids decreased but not discontinued. Try oral Levaquin in the morning-if tolerates anticipate can discharge on full liquids or bland diet. Hypomagnesemia present today, patient reports she was previously advised to take an tvua-fuv-nkhoyci magnesium supplement but had not initiated yet suggesting chronic hypomagnesemia which may be worsened now due to IV fluids. Replace IV today and will start Mag-Ox 400 mg twice a day thereafter. Recheck a.m. Excess fatigue and minor anxiety ongoing, sleep disruption present-low dose mirtazapine ordered. Describes increased indigestion since nausea and vomiting with pyelonephritis- famotidine initiated daily at bedtime. Blood pressure stable, hydrochlorothiazide remains on hold. ROBERT JACOBSEN MD July 09, 2016 17:28
--- NOTE | 2016-07-09 18:06 | NUR ---
STATUS PATIENT EATING SUPPER AT THIS TIME. PATIENT WAS ABLE TO EAT 50% OF LUNCH. APPETITE IS GRADUALLY RETURNING. PATIENT HAS NOT COMPLAINED OF NAUSEA TODAY. PATIENT WANTED TO GO HOME TODAY BUT MAG WAS 1.3. LAB HAS BEEN ORDERED FOR TOMORROW. PATIENT'S APPETITE IS NOT FULLY RETURNED EITHER. PATIENT WILL STAY ONE MORE NIGHT. PATIENT HAS BEEN ABLE TO AMBULATED TO AND FROM BATHROOM WITH ONE ASSIST. NOTED UNSTEADY GAIT.
[2016-07-09] MEDS: MAGNESIUM OXIDE 400 MG TABLET PO SCH (21:23)
[2016-07-09] MEDS: ALPRAZOLAM 0.25 MG TABLET PO PRN (21:23)
[2016-07-09] MEDS ORDERED: GUAIFENESIN LA 600 MG TABLET PO PRN (21:30)
[2016-07-09] MEDS ORDERED: BENZONATATE 100 MG CAPSULE PO PRN (21:30)
[2016-07-09] MEDS ORDERED: FAMOTIDINE 20 MG TABLET PO SCH (22:00)
[2016-07-09] MEDS ORDERED: MIRTAZAPINE 15 MG TABLET PO SCH (22:00)
[2016-07-10] VITALS (8 sets, daily range): BP systolic 134–174; BP diastolic 53–89; PULSE 83–95; RESP 16–20; TEMP 97.9–99.3; O2SAT 92–96
--- NOTE | 2016-07-10 05:41 | NUR ---
Shift Summary: Pt has rested well throughout the night. Pt remains on room air. Pt up with standby assist. Pt is slightly unsteady this am when ambulating to the bathroom. Pt states she is "sleepy." Pt voids frequently and has had good urinary output. Pt is pleasant and cooperative. Pt denies pain. Pt resting in bed at this time. Will continue to monitor.
[2016-07-10 06:11] LABS: BASOPHILS % (AUTO) 0.2 % (0-2); EOSINOPHILS # (AUTO) 0.1 T/MM3 (0-0.5); EOSINOPHILS % (AUTO) 1.4 % (0-4); HCT - HEMATOCRIT 32.2 % (36-46); HGB - HEMOGLOBIN 10.2 GM/DL (12-16); IMMATURE GRANULOCYTE # (AUTO) 0.04 T/MM3 (0.00-0.03); IMMATURE GRANULOCYTE % (AUTO) 0.4 % (0.0-0.5); LYMPHOCYTES # (AUTO) 2.6 T/MM3 (1-4.8); LYMPHOCYTES % (AUTO) 26.5 % (23-45); MEAN CORPUSCULAR HGB 30.3 UUG (26-34); MEAN CORPUSCULAR HGB CONC(MCHC 31.7 GM/DL (31-37); MEAN CORPUSCULAR VOLUME 95.5 UM3 (80-100); MEAN PLATELET VOLUME 11.6 UM3 (9.4-12.4); MONOCYTES % (AUTO) 10.4 % (0-9.0); NEUTROPHILS #(AUTO)-ABSOLUTE 6.1 T/MM3 (1.8-7.7); NEUTROPHILS % (AUTO) 61.1 % (33-66); RED BLOOD COUNT 3.37 M/MM3 (4.00-5.20); WBC - WHITE BLOOD COUNT 9.9 T/MM3 (4.5-11.0)
[2016-07-10 06:21] LABS: ANION GAP 10 MEQ/L (5-15); BUN/CREATININE RATIO 10 RATIO (6-26); CALCIUM 8.9 MG/DL (8.4-10.2); CHLORIDE 110 MEQ/L (98-107); CO2 - CARBON DIOXIDE 23 MEQ/L (22-30); GLOMERULAR FILTRATION RATE 54; GLUCOSE 88 MG/DL (65-110); MAGNESIUM 1.7 MG/DL (1.6-2.3); POTASSIUM 4.7 MEQ/L (3.6-5); SODIUM 143 MEQ/L (134-144)
[2016-07-10] MEDS ORDERED: LEVOFLOXACIN 750 MG TABLET PO SCH (06:30)
[2016-07-10] MEDS ORDERED: MELOXICAM 15 MG PO SCH (08:00)
--- NOTE | 2016-07-10 08:00 | NUR ---
RECEIVED REPORT PATIENT IS ALERT AND ORIENTED. DENIES PAIN OR ANY CONCERNS AT THIS TIME. PATIENT IS SCHEDULED TO DISCHARGE TODAY.
[2016-07-10] MEDS: MAGNESIUM OXIDE 400 MG TABLET PO SCH (09:58)
[2016-07-10] MEDS: POLYETHYL.GLYCOL 3350 PACKET 17gm PO SCH (10:00)
[2016-07-10] MEDS: LOSARTAN 100 MG TABLET PO SCH (10:00)
[2016-07-10] MEDS: NS KCL 20 MEQ 1,000 ML IV SCH (10:39)
[2016-07-10] MEDS ORDERED: ALPR0.255 PO (11:39)
[2016-07-10] MEDS ORDERED: LEVO750T20 PO (11:39)
[2016-07-10] MEDS ORDERED: MAGN400T6 PO (11:41)
--- NOTE | 2016-07-10 13:51 | DSPDOC ---
General Date Date DATE: 07/10/16 TIME: 13:33 Attending Physician Kandy Jacobsen MD Admitting Physician Kandy Jacobsen MD Consulting Physician Admitting Diagnosis sepsis, UTI, nausea/vomiting Discharge Diagnosis 1. Left pyelonephritis with sepsis 2. Klebsiella/Escherichia coli UTI 3. Hypomagnesemia 4. Nausea/vomiting, improved 5. Dehydration 6. Hypertension Laboratory Laboratory Tests Test 07/09/16 04:36 07/10/16 04:32 White Blood Count 11.8T/MM3 (4.5-11.0) 9.9T/MM3 (4.5-11.0) Red Blood Count 3.31M/MM3 (4.00-5.20) 3.37M/MM3 (4.00-5.20) Hemoglobin 9.8GM/DL (12-16) 10.2GM/DL (12-16) Hematocrit 31.7% (36-46) 32.2% (36-46) Mean Corpuscular Volume 95.8UM3 (80-100) 95.5UM3 (80-100) Mean Corpuscular Hemoglobin 29.6UUG (26-34) 30.3UUG (26-34) Mean Corpuscular Hemoglobin Concent 30.9GM/DL (31-37) 31.7GM/DL (31-37) RDW Standard Deviation 43.9FL (36.9-50.2) 43.7FL (36.9-50.2) Platelet Count 263T/MM3 (130-400) 256T/MM3 (130-400) Mean Platelet Volume 10.9UM3 (9.4-12.4) 11.6UM3 (9.4-12.4) Immature Granulocyte % (Auto) 0.5% (0.0-0.5) 0.4% (0.0-0.5) Neutrophils (%) (Auto) 68.4% (33-66) 61.1% (33-66) Lymphocytes (%) (Auto) 18.7% (23-45) 26.5% (23-45) Monocytes (%) (Auto) 11.5% (0-9.0) 10.4% (0-9.0) Eosinophils (%) (Auto) 0.7% (0-4) 1.4% (0-4) Basophils (%) (Auto) 0.2% (0-2) 0.2% (0-2) Absolute Immature Granulocyte (auto 0.06T/MM3 (0.00-0.03) 0.04T/MM3 (0.00-0.03) Absolute Neutrophils (auto) 8.1T/MM3 (1.8-7.7) 6.1T/MM3 (1.8-7.7) Absolute Lymphocytes (auto) 2.2T/MM3 (1-4.8) 2.6T/MM3 (1-4.8) Absolute Monocytes (auto) 1.4T/MM3 (0-0.8) 1.0T/MM3 (0-0.8) Absolute Eosinophils (auto) 0.1T/MM3 (0-0.5) 0.1T/MM3 (0-0.5) Absolute Basophils (auto) 0.0T/MM3 (0-0.2) 0.0T/MM3 (0-0.2) Turbidity < 20 (0-20) < 20 (0-20) Sodium Level 143MEQ/L (134-144) 143MEQ/L (134-144) Potassium Level 4.7MEQ/L (3.6-5) 4.7MEQ/L (3.6-5) Chloride Level 110MEQ/L (98-107) 110MEQ/L (98-107) Carbon Dioxide Level 23MEQ/L (22-30) 23MEQ/L (22-30) Anion Gap 10MEQ/L (5-15) 10MEQ/L (5-15) Blood Urea Nitrogen 13.0MG/DL (7-17) 10.0MG/DL (7-17) Creatinine 1.1MG/DL (0.7-1.2) 1.0MG/DL (0.7-1.2) Glomerular Filtration Rate Calc 48 54 BUN/Creatinine Ratio 12RATIO (6-26) 10RATIO (6-26) Glucose Level 97MG/DL (65-110) 88MG/DL (65-110) Calculated Osmolality 275MOSM/KG (261-280) 273MOSM/KG (261-280) Calcium Level 8.7MG/DL (8.4-10.2) 8.9MG/DL (8.4-10.2) Magnesium Level 1.3MG/DL (1.6-2.3) 1.7MG/DL (1.6-2.3) Icterus Index < 2 (0-7) < 2 (0-7) Chemistry Specimen Hemolysis < 15 (0-25) < 15 (0-25) White count on the date of admission was 23.3 thousand. Microbiology Microbiology Date/Time Source Procedure Growth Status 07/07/16 16:39 Peripheral/Iv Start Blood Culture - Preliminary NO GROWTH AFTER 48 HOURS Resulted 07/07/16 16:39 Peripheral/Iv Start Blood Culture - Preliminary NO GROWTH AFTER 48 HOURS Resulted 07/07/16 20:44 Urine, Clean Catch-Midstream Urine Culture - Final Mixed Gram Positive Organisms Complete Outpatient urine culture was positive for >100,000 colonies of pansensitive Escherichia coli and > colonies of Klebsiella resistant only to ampicillin Radiology Renal CT on 07/08 demonstrated: Perinephric stranding surrounding the left kidney could be due to acute pyelonephritis or recently passed stone. Recommend clinical and laboratory correlation. No stones were visualized in the ureters and only stone debris reported in the left interpolar area. History of Present Illness Jordin Sanchez is a very pleasant 75-year-old female who was a direct admit from the clinic due to sepsis and UTI. She reports that last evening, , around 11:30 pm, she began feeling nauseous and started vomiting with dry heaves. She reports that she was up vomiting almost every hour throughout the night. Prior to that, she states that she was feeling fine. She reports that she tried to eat some ice chips and take sips of water throughout the night, but would vomit after each attempt. She also reports episodes of incontinence with standing and when vomiting which is apparently new for her. She denies any known fevers but admits to having chills at home. She denies any chest pain , shortness of breath, abdominal pain, diarrhea, dysuria or hematuria. Her daughter is present on exam and recalls that her mother was recently treated with azithromycin for bronchitis from 06/25/16-06/30/16. Mrs. Sanchez reports that her cough had resolved following treatment with the azithromycin but returned last evening, just prior to vomiting. She denies any recent bad food or exposure to sick contacts with similar symptoms. In light of her symptoms and not feeling well, she presented to her PCP's office this morning for further evaluation. She was seen by Marychuy Carroll APRN in the clinic and underwent a thorough work up including labs and imaging. Vital signs on presentation to the clinic revealed she was febrile at 38.5 C and tachycardic with heart rate 92. CBC revealed leukocytosis with WBC at 23.3 with 73% neutrophils and no bands, hemoglobin 12.3 and platelets 364. UA in the clinic is reported to show + leukocytes and nitrites and trace blood. CXR showed mild chronic appearing increased interstitial markings without acute consolidation, pleural fluid or other acute findings. In light of her UTI and apparent sepsis as indicated by her leukocytosis, tachycardia and fever, Dr. Jacobsen was contacted and she was directly admitted into observation status for further evaluation and treatment. On exam, Mrs. Sanchez is seen immediately upon her arrival to room 135. Her daughter accompanies her and contributes to her history as well as prior records. She is resting in bed and is alert and orientated x 3. Mucous membranes are tacky. Cardiac exam reveals tachycardia with irregular rhythm. She denies a history of a-fib or cardiac history. Lungs are clear to auscultation bilaterally without cough, congestion or respiratory distress. No wheezing. Abdomen is soft, nontender with active bowel sounds. 1-2+ edema noted to bilateral lower extremities and SCDs in place. 2+ pedal pulses bilaterally and varices noted to feet and lower extremities. She is cooperative and pleasant on exam. Hospital Course Mrs. Sanchez was admitted with acute urinary symptoms and intractable nausea/ vomiting precluding use of oral antibiotics for management. She had clinical suspicion of sepsis based on marked leukocytosis, tachycardia, and fever. Procalcitonin and lactic acid were both reassuringly low. The patient was treated empirically with IV Levaquin due to multiple antibiotic allergies with IV fluids for dehydration and antiemetics for ongoing nausea. Nausea gradually subsided over the next 48 hours and diet was slowly advanced. Patient was able to resume limited solid food on 07/09 and was converted to oral antibiotics the morning of 07/10 without difficulty. Blood cultures remain negative and she was felt stable for discharge at this point. Outpatient urine culture was positive for a gram-negative organisms as previously noted both of which were sensitive to Levaquin which will be continued for an additional 6 days. Urine culture obtained in the hospital grew out only mixed gram-positive organisms was obtained after the initial dose of Levaquin was given. Urinary CT was obtained to exclude significant nephrolithiasis that may require longer course antibiotic therapy or obstructing stone-neither was present but there was perinephric stranding on the left consistent with pyelonephritis. The patient had mild left flank tenderness transiently but this resolved prior to discharge. Leukocytosis improved progressively with treatment. The patient was incidentally noted to be hypomagnesemic which was replaced IV and oral supplementation started prior to discharge. On 07/10 the patient was tolerating oral antibiotics and food without difficulty. She describes generalized fatigue but no lightheadedness or dyspnea. She describes sleeping well overnight. It should be noted that family members have expressed concern about anxiety/depression but the patient has been reluctant to consider medications. She has taken low-dose alprazolam a couple of times during the hospital course and slept well after an initial dose of 7.5 mg mirtazapine last night but does not wish to continue the SSRI at discharge. The patient is alert and cooperative at this time, breath sounds are clear, and the abdomen is benign and without flank tenderness. She will complete 6 additional days of Levaquin for a total of 10 days therapy. Home medications are otherwise resumed with the addition of Mag-Ox 400 mg twice a day. She is asked to follow up with Dr. Hawkins or Olamide Carroll APRN in approximately 7-10 days for reassessment. >30 minutes spent on patient care and discharge care coordination today on the date of discharge. -- Problems: (1) Sepsis Status: Acute Assessment & Plan: present on admission secondary to UTI as indicated by: * Leukocytosis - WBC 23.3. * Fever - 38.5 C * Tachycardia - 92. (2) Pyelonephritis Status: Acute Assessment & Plan: left (3) UTI (urinary tract infection) Status: Acute Assessment & Plan: present on admission. Outpatient urine culture > 100,000 colonies GNR (4) Hypomagnesemia Status: Acute Assessment & Plan: Has been previously advised to take slaz-xil-ravshto magnesium supplement-chronic HCTZ use (5) Nausea & vomiting Status: Acute (6) Dehydration Status: Resolved Assessment & Plan: present on admission. (7) Hypertension Status: Chronic (8) Sciatica Status: Chronic (9) Osteoarthritis Status: Chronic (10) GERD (gastroesophageal reflux disease) Status: Chronic (11) Allergic rhinitis Status: Chronic (12) Insomnia Status: Acute (13) Anxiety Status: Acute (14) Anemia (15) CKD (chronic kidney disease), stage III Status: Chronic (16) Obesity (BMI 30-39.9) Code Status Full Code Home Meds Active Scripts Magnesium Oxide (Magnesium Oxide) 400 Mg Tablet, 400 MG PO BID, #60 TAB Prov:KANDY JACOBSEN MD 07/10/16 Alprazolam (Alprazolam) 0.25 Mg Tablet, 0.25 MG PO TID Y for ANXIETY, #15 TAB Prov:KANDY JACOBSEN MD 07/10/16 Levofloxacin (Levaquin) 750 Mg Tablet, 750 MG PO ACB for 6 Days, #6 TAB Prov:KANDY JACOBSEN MD 07/10/16 Reported Medications Meloxicam (Mobic) 15 Mg Tablet, 15 MG PO DAILY, TAB 12/06/12 Acetaminophen (Tylenol Arthritis) 650 Mg Tablet, 650 MG PO PRN 03/04/12 Losartan/Hydrochlorothiazide (Losartan-Hctz 50-12.5 Mg Tab) 1 Each Tablet, 1 TAB PO DAILY 01/22/12 Hydrochlorothiazide (Hydrochlorothiazide) 25 Mg Tablet, 12.5 MG PO DAILY Y 01/21/12 Cetirizine Hcl (Zyrtec) 5 Mg Tablet, 5 MG PO PRN 02/18/11 Meclizine Hcl (Meclizine Hcl) 25 Mg Tablet, 25 MG PO PRN 02/18/11 Face to Face Encounter I met with patient on the day of dismissal and discussed follow up appointments , medications, and safety plan. Discharge Disposition Home Copies To 1: ANGELA HAWKINS MD Documentation Requirements Chronic Kidney Disease Stage of CKD: Stage 3 GFR 30-59 Anemia Anemia Acuity: Chronic BMI Low or High Assoc. dx for low or high BMI: Severe Obesity 35-39.9 KANDY JACOBSEN MD July 10, 2016 13:37
--- NOTE | 2016-07-10 17:00 | NUR ---
DISCHARGED MEDICATION AND DISCHARGE INSTRUCTIONS ARE GIVEN. DAUGHTER AT BEDSIDE DURING THE INSTRUCTIONS. ALL QUESTIONS ARE ANSWERED. SCRIPTS ARE GIVEN TO THE PATIENT. PATIENT IS WHEELED TO FAMILY [facility] AT THIS TIME.
== END 2016-07-10 17:00 | disposition home or self-care (01) | DRG 872 ==
LOC: MED 15:21 → OBSVTOIN 18:44
PROVIDERS: ADMIT Internal Medicine; ATTEND Internal Medicine
DX: A41.9 Sepsis, unspecified organism (principal); N10 Acute pyelonephritis; E87.0 Hyperosmolality and hypernatremia; E87.6 Hypokalemia; E83.42 Hypomagnesemia; E86.0 Dehydration; I12.9 Hypertensive chronic kidney disease with stage 1 through stage 4 chronic kidney disease, or unspecified chronic kidney disease; N18.3 Chronic kidney disease, stage 3 (moderate); D64.9 Anemia, unspecified; B96.1 Klebsiella pneumoniae [K. pneumoniae] as the cause of diseases classified elsewhere; B96.20 Unspecified Escherichia coli [E. coli] as the cause of diseases classified elsewhere; K21.9 Gastro-esophageal reflux disease without esophagitis; G47.00 Insomnia, unspecified; F41.9 Anxiety disorder, unspecified; M54.31 Sciatica, right side; M15.0 Primary generalized (osteo)arthritis; J30.9 Allergic rhinitis, unspecified
CPT/HCPCS: 36415; 80048; 83605; 83735; 84145; 85025; 87040; 87086; 99218